=== PATIENT | female | born 1945 | race Caucasian/White ===

== ENCOUNTER 2023-08-20 15:43 | Emergency (ER) | payer OTHER, MEDICAID, SELFPAY ==
[2023-08-20 15:54] VITALS: BP 163/95
--- NOTE | 2023-08-20 17:12 | ED.MUSCINJ ---
HPI-Injury
General
Chief Complaint: Musculo-Skeletal Complaint
Source: patient
Exam Limitations: none
Time Seen by Provider: 08/20/23 17:12
Nursing documentation reviewed up to this point in time: agreed with
Travel History
Have you had any contact with someone who has COVID-19?: No
Do you have any symptoms of coronavirus? Fever > 100 degrees, chills, cough, shortness of breath, sore throat, loss of taste or smell, muscle aches, or headache?: No
History of Present Illness-Injury
Initial Injury comments:
77-year-old female with history HTN, HLD, PA, GERD presents stating she has left shoulder pain after her dog pulled her and she fell into a playground equipment and her daughters backyard. She is visiting from [place] and was planning on
driving home in 2 days. She denies hitting her head. She is anticoagulated. She denies any other injury.
Past History
Past History
ED Past Medical History: GERD, HTN, Hypercholesterolemia and Other (Polycythemia vera on hydroxyurea 500 mg daily)
ED Past Surgical History: Cardiac (Cardiac stent)
Social History
Tobacco: Non-smoker
Alcohol: None
Personal: Single
Living: alone (Visiting from [place])
Review of Systems
Review of Systems
Allergies reviewed?: Yes
All Other Systems: ROS reviewed and negative except as documented in HPI and ROS
Respiratory: Denies trouble breathing
Cardiac: Denies chest pain
ABD/GI: Denies abdominal pain or nausea
Musculoskeletal: Reports other (Pain left shoulder); Denies neck pain or back pain
Skin: Reports no symptoms
Neurological: Reports no symptoms; Denies headache
Musculoskeletal Injury Exam
Musculoskeletal Injury Exam
Left shoulder:
Pain with Movement?: Moderate
Tender to palpation?: Moderate
Soft tissue swelling?: Mild
Joint instability?: No
Malalignment/deformity?: No
Range of motion: Limited
Distal skin color and temperature: normal-warm & good color
Capillary Refill: normal
Normal distal neurovascular exam?: Yes
Phy Exam
Physical Exam
Physical Exam:
GENERAL: No acute distress. A&Ox3.
CONSTITUTIONAL: Afebrile.
EYES: PERRL, conjunctivae normal
Neck: Supple
ENMT: moist mucus membranes, Pharynx nl
RESPIRATORY: Regular respirations, nonlabored, lungs clear.
CARDIOVASCULAR: Regular rate and rhythm, no murmurs, no rubs.
GI: Soft, nontender, normal BS
MUSCULOSKELETAL: No spinal bony tenderness. Ribs nontender to compression/palpation. Rest of extremities moving well without discomfort. Moves with ease. Well perfused.
SKIN: Warm, dry, pink, small ecchymotic area left upper chest wall, minimal tenderness to palpation here.
PSYCH: Normal mood and affect. Well kept, interactive and appropriate
NEUROLOGIC: Awake, alert and oriented. No focal neurological deficits
Injury Course
Orders/Labs/Results
Orders:
Orders
08/20/23 15:57
CR Shoulder, Trauma - Left Urgent
Comment:
Reason For Exam: pain after fall
Humerus, Left 2 Views [CR Humerus - Left Min 2 Views*] Urgent
Comment:
Reason For Exam: pain after fall
08/20/23 17:36
Oxycodone/Acetaminophen [Percocet 5/325] 1 tablet PO NOW STA
08/20/23 17:37
Sling Left-Treatment ONCE
MDM/Problems Addressed
Differential Diagnosis Includes:
Soft tissue injury/fracture left shoulder
MDM/Problems Addressed:
77-year-old female with history HTN, HLD, PA, GERD presents stating she has left shoulder pain after her dog pulled her and she fell into a playground equipment and her daughters backyard. She is visiting from [place] and was planning on
driving home in 2 days. She denies hitting her head. She is anticoagulated. She denies any other injury.
X-ray left shoulder shows comminuted minimally displaced fracture of the humeral head.
Sling applied, rings removed
Refer to orthopedics for follow-up
Sent text to Dr. Prakash to get her in sooner rather than later as she will be driving alone with dog back to [place]. He states he will fit her in tomorrow.
Rx for [place] sent to her daughter's pharmacy
*Critical Care Note
Total Time (30-74mins, 75-104mins- exclusive of procedures): Not Applicable
ED Attending Note
-
Portions of this chart may have been created with voice recognition software.� Occasional wrong word or��sound alike� substitutions may have occurred due to the inherent limitations of voice recognition software.
Discharge Plan
Departure
Patient Disposition: Home (Routine Discharge)
Date of Disposition: 08/20/23
Time of Disposition: 17:46
Patient with high blood pressure during this ER visit?: Yes
Condition: Good
Discharge Problem:
Fall from slip, trip, or stumble, Fracture, humerus, head, Contusion of chest wall
Instructions: Contusion (DC), Shoulder Fracture, Using Cold for Pain, Narcotic Pain Medication
Prescriptions:
New
hydrocodone-acetaminophen 5-325 mg tablet
1 tab PO Q6H PRN (Reason: pain) Qty: 14 0RF
Referrals:
Billy Prakash MD [Active] - Next open appointment
Activity Restrictions/Additional Instructions:
As we discussed, wear the sling until further instructed by the orthopedic doctor.
Cold compress to shoulder area 20 minute off and on today and tomorrow.
Tylenol for mild to moderate pain and use the [place] (hydrocodone) as needed for worse pain.
Do not drive within 6 hours of taking the [place].
Call the orthopedic doctor's office tomorrow and make next available appointment.
Interventions
Interventions:
*Risk Screen - Suicide Last Done: 08/20/23 18:27
*General Assessment Last Done: 08/20/23 18:27
*Neglect/Abuse Screening Last Done: 08/20/23 18:27
ED- Fall Risk Assessment Last Done: 08/20/23 18:27
*ED COVID-19 Vaccine History Last Done: 08/20/23 15:54
*Nursing Disposition Last Done: 08/20/23 18:27
ED-Musculoskeletal Assessment Last Done: 08/20/23 18:27
Discharge Date and Time
Discharge Date/Time: 08/20/23 18:28
Print Language: DJIBOUTIAN
[2023-08-20 17:50] VITALS: BMI 28.2
[2023-08-20] MEDS: PERCOCET 5/325 1 TABLET PO (17:56)
== END 2023-08-20 18:28 | disposition home or self-care (01) ==
LOC: EMR 15:43
PROVIDERS: EMERGENCY PHYSICIAN Emergency Medicine
DX: S42.292A Other displaced fracture of upper end of left humerus, initial encounter for closed fracture (principal); S20.212A Contusion of left front wall of thorax, initial encounter; W18.39XA Other fall on same level, initial encounter; Y93.89 Activity, other specified; Y92.007 Garden or yard of unspecified non-institutional (private) residence as the place of occurrence of the external cause; I10 Essential (primary) hypertension; E78.00 Pure hypercholesterolemia, unspecified; K21.9 Gastro-esophageal reflux disease without esophagitis; D45 Polycythemia vera; I25.2 Old myocardial infarction; Z95.5 Presence of coronary angioplasty implant and graft; Z79.82 Long term (current) use of aspirin; Z88.1 Allergy status to other antibiotic agents; Z88.2 Allergy status to sulfonamides
CPT/HCPCS: 99283; 73030; 73060

== ENCOUNTER 2023-08-21 10:36 | Inpatient (IN) | payer OTHER, MEDICAID, SELFPAY ==
[2023-08-21] VITALS (9 sets, daily range): BP systolic 102–145; BP diastolic 54–100; PULSE 88–130; BMI 29.0; BMI 29.1
--- NOTE | 2023-08-21 07:22 | ED.GENMED ---
History of Present Illness
General
Chief Complaint: Fainting Sensation
Time Seen by Provider: 08/21/23 07:22
Travel History
Have you had any contact with someone who has COVID-19?: No
Do you have any symptoms of coronavirus? Fever > 100 degrees, chills, cough, shortness of breath, sore throat, loss of taste or smell, muscle aches, or headache?: No
History of Present Illness
History of Present Illness:
HPI: The patient was diagnosed with left shoulder fracture yesterday. Today she has been having increasing weakness to the point that she felt like she was going to pass out. She was to follow-up with Dr. Prakash by calling them today. She did not
have chest pain but did have weakness when she had her AK in 2019. Her skin piler is in [place] and she states she recently saw her and said everything 'was fine'.
EXAM:
GENERAL: Well appearing in no distress
HEENT: Moist oral mucosa
CARDIOVASCULAR: No murmurs, normal heart rate, regular rhythm, No chest wall tenderness
PULMONARY: No respiratory distress, breath sounds are clear and equal
ABDOMEN: Soft with no peritoneal signs, no tenderness
NEUROLOGIC: Excellent strength all extremities, no coordination deficits
PSYCHIATRIC: Appropriate mental status, normal insight and judgement
EXTREMITIES: Markedly decreased active range of motion of the left upper extremity proximally. There is ecchymosis noted anteriorly, there is some edema noted as well
SKIN: No rash, no lesions
TIME OF INITIAL ENCOUNTER: 7:40 AM
NUMBER AND COMPLEXITY OF PROBLEMS ADDRESSED AT THE ENCOUNTER
� Chronic conditions affecting care: CAD/AK, high blood pressure, hyperlipidemia, polycythemia vera
� Acute Exacerbation and/or Progression of Chronic Illness: This is an acute
� Differential Diagnosis includes: General debilitated state related to fracture, anemia, electrolyte abnormality, dehydration
AMOUNT AND/OR COMPLEXITY OF DATA TO BE REVIEWED AND ANALYZED
� I performed an independent evaluation of and my interpretation is:
EKG: Sinus 80, left axis deviation, nonspecific ST abnormality, no old to compare
CT:
X-rays: I reviewed the x-rays from yesterday
Laboratory Studies: CBC unremarkable, chemistries and troponin unremarkable
Other:
� Review of other/old records: I reviewed the records from yesterday, the patient has a comminuted proximal left humerus fracture
� Clinical information was obtained by an independent historian:
� Prescriptions/Medications Considered but not given:
� Further testing considered but not performed:
RISK OF COMPLICATIONS AND/OR MORBIDITY OR MORTALITY OF PATIENT MANAGEMENT
� Social determinants of health affecting care: Lives in [place], visiting daughter locally
� Discussion with other providers: I discussed case with Dr. Gann PT; I spoke to PT; Dr. Prakash later called and recommends medical admission and likely OR tomorrow. Dr. Callejas accepts at 8:45 AM.
� Escalation of care including admission/observation vs risk of discharge considered: Will have PT evaluate patient in ED. Basic labs including troponin are unremarkable. I do not feel she can be safely discharged as she has a
broken shoulder and normally uses her upper extremities to assist with getting up.
Past History
Past History
ED Past Medical History: GERD, HTN, Hypercholesterolemia and Other (Polycythemia vera on hydroxyurea 500 mg daily)
ED Past Surgical History: Cardiac (Cardiac stent)
Social History
Tobacco: Non-smoker
Alcohol: None
Personal: Single
Living: alone (Visiting from [place])
Phy Exam
Physical Exam
Physical Exam:
See HPI
Course
Orders/Labs/Results
Orders:
Orders
08/21/23 07:04
EKG [Electrocardiogram (*1)] Urgent
Reason for Study: Syncope
EKG- Treatment ONCE
08/21/23 07:18
CMP [Comprehensive Metabolic Panel] Urgent
Complete Blood Count/With Diff Urgent
Troponin I Urgent
08/21/23 07:32
0.9% Sodium Chloride 1000 ml [Nss] 1,000 ml IV BOLUS
08/21/23 08:07
PT Consult [Pt Eval And Treat] Urgent
Activity Level: Ambulate
08/21/23 08:38
CT Upper Ext W/o Iv Cont Lt Urgent
Comment:
Reason For Exam: eval prox humerus fracture per ortho
08/21/23 Lunch
Cholesterol Lowering
Fluid Restriction: 1200 mL/day (40 oz)
Cholesterol Lowering: Sodium, 2 Gram
08/21/23 10:16
Admit/Transfer Patient As Directed
Co-Sign Provider:
Level of Care: Inpatient admission
Assign to:: Telemetry
Physician / Group: Dorita ramosists
Diagnosis: L shoulder fracture, pre-syncope
Reason for Telemetry: Chest Pain syndromes
Date to Stop Telemetry: 08/23/23
Time to Stop Telemetry: 11:00
Reason for Hospitalization: L shoulder fracture, pre-syncope - syncope workup, operative management of
fracture
Expected length of stay greater than two midnights?: Yes
ELOS- Estimated Length of Stay in days: 3
I certify the patient meets the requirements for IP care: Yes
08/21/23 10:19
Code Status As Directed
Resuscitation Status: Full Code
08/21/23 10:21
Echo 2D MMode Color/Doppler Routine
Reason for Study: pre-syncope, hx of AK, pre-op risk assessment
08/21/23 11:31
Acetaminophen [Tylenol] 1,000 mg PO Q6HPRN PRN
08/23/23 11:00
DC Protocol for Telemetry ONCE
Abnormal Lab Results
08/21/23
07:18
WBC 10.9 H 10^3/uL
(4.8-10.8)
RBC 3.05 L 10^6/uL
(4.20-5.40)
Hgb 11.6 L g/dL
(12.0-16.0)
Hct 33.0 L %
(37.0-47.0)
MCV 108.2 H fL
(81.0-99.0)
MCH 38.0 H pg
(27.0-31.0)
Abs Immat Gran (auto) 0.1 H 10^3/uL
(0-0.05)
Absolute Neuts (auto) 9.1 H 10^3/uL
(1.4-6.5)
Absolute Lymphs (auto) 0.8 L 10^3/uL
(1.2-3.4)
Absolute Monos (auto) 0.8 H 10^3/uL
(0.1-0.6)
Immature Gran % 0.6 H %
(0-0.5)
Neutrophils % 83.5 H %
(42.2-75.2)
Lymphocytes % 7.7 L %
(20.5-51.1)
Sodium 131 L mmol/L
(135-145)
Creatinine 0.5 L mg/dL
(0.6-1.0)
Glucose 133 H mg/dl
(70-99)
Total Bilirubin 2.5 H mg/dl
(0.2-1.3)
08/21/23 07:18
08/21/23 07:18
Vital Signs
Initial and Last Documented VS:
Initial Vital Signs
Pulse Resp BP
83 9 117/59
08/21/23 07:03 08/21/23 07:03 08/21/23 07:03
Last Documented Vital Signs
Temp Pulse Resp BP Pulse Ox
97.8 F 80 15 113/80 98
08/21/23 07:05 08/21/23 11:30 08/21/23 11:30 08/21/23 09:13 08/21/23 07:45
*Critical Care Note
Total Time (30-74mins, 75-104mins- exclusive of procedures): Not Applicable
ED Attending Note
-
Portions of this chart may have been created with voice recognition software.� Occasional wrong word or��sound alike� substitutions may have occurred due to the inherent limitations of voice recognition software.
Discharge Plan
Departure
Patient Disposition: Admit
Date of Disposition: 08/21/23
Time of Disposition: 08:45
Presentation/result/management discussed w/ accepting MD/DO: Hospitalist
Discharge Problem:
Near syncope, Fracture of proximal humerus
Interventions
Interventions:
*Risk Screen - Suicide Last Done: 08/21/23 07:05
*General Assessment Last Done: 08/21/23 07:13
*Neglect/Abuse Screening Last Done: 08/21/23 07:05
ED- Fall Risk Assessment Last Done: 08/21/23 07:13
*ED COVID-19 Vaccine History Last Done: 08/21/23 07:05
ED- Cardiac Assessment Last Done: 08/21/23 07:13
ED- Neurological Assessment Last Done: 08/21/23 07:13
[2023-08-21 07:31] LABS: % Basophils 0.3 % (0-2); % Eosinophils 0.2 % (0-6); % Immature Granulocytes 0.6 % (0-0.5); % Lymphocytes 7.7 % (20.5-51.1); % Monocytes 7.7 % (1.7-9.3); % Neutrophils 83.5 % (42.2-75.2); Absolute Immature Granulocytes 0.1 10^3/uL (0-0.05); Absolute Lymphocytes 0.8 10^3/uL (1.2-3.4); Absolute Monocytes 0.8 10^3/uL (0.1-0.6); Absolute Neutrophils 9.1 10^3/uL (1.4-6.5); Hemoglobin 11.6 g/dL (12.0-16.0); Mean Corp Hgb Conc. 35.2 g/dL (33.0-37.0); Mean Corpuscular Volume 108.2 fL (81.0-99.0); Mean Platelet Volume 8.8 fL (7.4-10.4); Nucleated Red Blood Cells % 0 %; Platelet Count 280 10^3/uL (130-400); Red Blood Cell Count 3.05 10^6/uL (4.20-5.40); Red Cell Dist. Width 13.3 % (11.5-14.5); White Blood Cell Count 10.9 10^3/uL (4.8-10.8)
[2023-08-21] MEDS: NSS 1000 IV (07:42)
[2023-08-21 07:50] LABS: ALT (SGPT) 19 U/L (0-35); AST (SGOT) 25 U/L (14-36); Alkaline Phosphatase 53 U/L (38-126); Blood Urea Nitrogen 17 mg/dl (7-17); Calcium 8.8 mg/dl (8.4-10.2); Carbon Dioxide 25 mmol/L (22-30); Chloride 102 mmol/L (98-107); Estimated Creatinine Clearance 89 ml/min; Glucose 133 mg/dl (70-99); Potassium 3.7 mmol/L (3.5-5.1); Sodium 131 mmol/L (135-145); Total Bilirubin 2.5 mg/dl (0.2-1.3); Total Protein 6.4 g/dl (6.3-8.2); eGFR > 60.00
[2023-08-21 08:00] LABS: Troponin I < 0.012 ng/ml
--- NOTE | 2023-08-21 10:05 | HPS.HSE ---
Family Physician
-
Family Physician: * NONE
Chief Complaint
-
shoulder fracture
History of Present Illness
78 y/o F hx of Nicky Paz, hx of 2018, Essential HTN returns to ER today with weakness and pain to the point of falling out. She was diagnosed with L shoulder fracture from mechnical fall 2 days ago. She was seen in ER, placed in sling and dc with
Ortho f/u. She reports weakness, pain, and today felt close to passing out to due to pain - she became sweaty, lightheaded. No chest pain or SOB, no other complaints. She was referred for admission by orthopedics for OR intervention of fracture
tomorow.
Patient lives in [place] and visiting family locally.
Medical History
Past Medical History
Past Medical History: Reports Other (Nicky Paz, jose of 2018, Essential HTN, HLD, GERD)
Past Surgical History: Reports Cardiac
Social History
Tobacco: Non-smoker
Alcohol: None
Drug: None
Personal:
Living: Alone (in [place])
Family History
Family History: Not pertinent
Allergies / Home Medications
Allergies reflects when Allergies were last updated in [facility].
Home Medications with original date entered in [facility]
Allergy/Medication List:
Allergies
Allergy/AdvReac Type Severity Reaction Status Date / Time
erythromycin base Allergy Unknown Verified 08/21/23 07:12
Sulfa (Sulfonamide Allergy Unknown Verified 08/21/23 07:12
Antibiotics)
Home Medications
acetaminophen 500 mg tablet (Tylenol Extra Strength) 1,000 mg PO Q6HPRN PRN mild pain 08/21/23
aspirin 81 mg tablet,delayed release 81 mg PO QPM Blood Clot Prevention/Tx 08/21/23
calcium carbonate 1,000 mg PO DAILY Supplement 08/21/23
cholecalciferol (vitamin D3) 50 mcg (2,000 unit) tablet (Vitamin D3) 50 mcg PO DAILY Supplement 08/21/23
coQ10 (ubiquinol) 100 mg capsule 100 mg PO DAILY Supplement 08/21/23
dexlansoprazole 60 mg capsule,biphase delayed release (Dexilant) 30 mg PO DAILY Gastrointestinal Issue 08/21/23
hydroxyurea 500 mg capsule 500 mg PO MOWEFR@0800 rheumatoid arthritis 08/21/23
hydroxyurea 500 mg capsule 500 mg PO QPM rheumatoid arthritis 08/21/23
metoprolol tartrate 25 mg tablet 25 mg PO BID Blood Pressure 08/21/23
phytosterol 400 mg tablet 400 mg PO DAILY Supplement 08/21/23
rosuvastatin 40 mg tablet (Crestor) 40 mg PO QPM High Cholesterol 08/21/23
turmeric 400 mg capsule 400 mg PO DAILY Supplement 08/21/23
Review of Systems
-
A 12 point ROS was completed and negative except as noted: Yes
Physical Exam
Vital Signs
Vital Signs
Temp Pulse Resp BP Pulse Ox
97.8 F 83 24 112/60 98
08/21/23 07:05 08/21/23 08:45 08/21/23 08:45 08/21/23 08:00 08/21/23 07:45
Physical Exam
General: No Apparent Distress
HEENT: NormoCephalic and Anicteric
Respiratory: Clear; No Wheezes or Rales
Cardiac: S1/S2 and Regular Rhythm
GI: Soft and Non Tender
Musculoskeletal: Other (L shoulder immobilized in sling)
Neuro: AO x 3
Hematologic/Lymphatic: No Lymphadenopathy
Psych: Calm
Laboratory Results
-
08/21/23 07:18
08/21/23 07:18
Laboratory Results
Total Bilirubin 2.5 mg/dl (0.2-1.3) H 08/21/23 07:18
AST 25 U/L (14-36) 08/21/23 07:18
ALT 19 U/L (0-35) 08/21/23 07:18
Alkaline Phosphatase 53 U/L (38-126) 08/21/23 07:18
Troponin I < 0.012 ng/ml 08/21/23 07:18
Data Reviewed
-
Diagnostic Radiology: Report Reviewed by me, Discussed with Physician and Discussed with Patient
Lab Data: Labs Reviewed by me, Discussed with Physician and Discussed with Patient
Impression/Plan
-
Assessment:
L traumatic shoulder fracture
- Xray: Proximal left humerus fracture.
- CT: pending
- Ortho contacted by ER; recommended admit and OR tomorrow; NPO p MN
- pain control
- keep shoulder immobilized
- EKG: NSR with PAC, old septal infarct, VR 80
- [facility] risk: 0.8% for MACE, ND, cardiac arrest. obtain Echo for pre-syncope workup.
Pre-syncope
- likely vagal in setting of pain
- check orthostatics if able
- EKG: NSR with PAC, old septal infarct, VR 80
- monitor on tele
- Echo added
Hyponatremia, monitor for now
- likely ADH from pain
- add OFR
HX of P. [place]
- continue ASA/Hydrea
HX of CAD s/p ND 2018 with stent
HLD
Essential HTN
- she reports recent Cards visit in [place], all stable
- EKG: NSR with PAC, old septal infarct, VR 80
- trop neg
- continue ASA/Statin/BB
GERD - continue PPI
DVT ppx: SCDs
Code: Full
[2023-08-21] MEDS: TYLENOL 1000 MG PO ×2 (11:35→19:46)
--- NOTE | 2023-08-21 12:46 | CON.ORTHO ---
Consultation
-
Date/Time Consultation Requested: 08/21/2023
Date/Time Consultation Performed: 08/21/2023
Performing Provider: China Ramirez PA-C, for Dr. Prakash
Reason for Consultation: left proximal humerus fracture
Consultation - Orthopedics
History
HPI: This is a 77-year-old female who presented earlier today after sustaining a second fall following her proximal humerus fracture of her left shoulder yesterday. She reports she was walking her dog on his leash in her daughter's backyard
yesterday, when he ran after the neighbor's pulling her along with the leash. She is unsure if she reached out to catch herself or just hit her left shoulder on the playground in the backyard. She was seen at [facility] yesterday and
discharged home for outpatient follow-up. This morning, she was attempting to get herself out of the bathroom when she experienced increased pain, diaphoresis, and sustained a syncopal episode. She was able to catch herself and move along the
wall, landing on her buttock. It was determined that she would be admitted to the hospital to proceed with definitive treatment of her left proximal humerus fracture going forward.
Past medical history: Significant for polycythemia vera, GERD, hypertension, hypercholesterolemia, CAD.
Past surgical history: Cardiac stent placement.
Social history: Denies tobacco use, no alcohol use, resides in [place] alone. Currently staying with daughter.
Family history: Noncontributory.
Review of systems: All systems reviewed and negative except for those mentioned in HPI
Allergies / Home Medications
Allergy/AdvReac Type Severity Reaction Status Date / Time
erythromycin base Allergy Unknown Verified 08/21/23 07:12
Sulfa (Sulfonamide Allergy Unknown Verified 08/21/23 07:12
Antibiotics)
�Medication �Instructions �Recorded
acetaminophen 500 mg tablet 1,000 mg PO Q6HPRN PRN mild pain 08/21/23
(Tylenol Extra Strength)
aspirin 81 mg tablet,delayed 81 mg PO QPM Blood Clot 08/21/23
release Prevention/Tx
calcium carbonate 1,000 mg PO DAILY Supplement 08/21/23
cholecalciferol (vitamin D3) 50 50 mcg PO DAILY Supplement 08/21/23
mcg (2,000 unit) tablet (Vitamin
D3)
coQ10 (ubiquinol) 100 mg capsule 100 mg PO DAILY Supplement 08/21/23
dexlansoprazole 60 mg 30 mg PO DAILY Gastrointestinal 08/21/23
capsule,biphase delayed release Issue
(Dexilant)
hydroxyurea 500 mg capsule 500 mg PO MOWEFR@0800 rheumatoid 08/21/23
arthritis
hydroxyurea 500 mg capsule 500 mg PO QPM rheumatoid arthritis 08/21/23
metoprolol tartrate 25 mg tablet 25 mg PO BID Blood Pressure 08/21/23
phytosterol 400 mg tablet 400 mg PO DAILY Supplement 08/21/23
rosuvastatin 40 mg tablet (Crestor) 40 mg PO QPM High Cholesterol 08/21/23
turmeric 400 mg capsule 400 mg PO DAILY Supplement 08/21/23
Vital Signs / Lab Results
Temp Pulse Resp BP Pulse Ox
97.8 F 80 15 113/80 98
08/21/23 07:05 08/21/23 11:30 08/21/23 11:30 08/21/23 09:13 08/21/23 07:45
08/21/23 07:18
08/21/23 07:18
Physical examination:
General: Well-developed, well nourished female in mild distress at rest secondary to the left shoulder pain. AAOx4.
HEENT: Atraumatic, normocephalic, neck supple.
Lungs: Nonlabored breathing on room air, no audible wheezing.
Heart: Regular rate and rhythm.
Left shoulder: Immobilized in sling. Moderate swelling and ecchymosis extending to the left upper extremity. Neurovascularly intact distally. Range of motion of shoulder not tested due to known fracture.
Radiographic studies:
X-rays of the left shoulder from [facility] on 08/20/2023 shows evidence of a comminuted proximal left humerus fracture involving the humeral head and greater tuberosity with displaced fracture fragments. Cannot rule out intra-articular
extension. No dislocation.
CT scan of the left shoulder from 08/21/2023 shows evidence of a moderately comminuted, impacted intra-articular left proximal humerus fracture
Assessment / Plan
Assessment: Left proximal humerus fracture, displaced and intra-articular.
Plan: Unfortunately, Alyssa sustained a displaced, comminuted, intra-articular proximal humerus fracture of her left shoulder during her fall yesterday. She was unable to manage this on an outpatient basis, so at this point, our recommendation is
to proceed with surgical intervention. The plan will be a left reverse total shoulder arthroplasty under the direction of Dr. Prakash tomorrow, 08/22/2023. She will remain immobilized in the sling until that time. The surgery was discussed in detail
along with the risks, benefits, and associated recovery process. Surgical and blood transfusion consents were obtained and placed in patient's chart. Her left shoulder was marked as the correct surgical site. IV antibiotics and irrigation are
on-call to the OR. She will remain n.p.o. after midnight tonight. Will plan to proceed to the OR tomorrow pending medical stabilization. All questions were answered and patient is in agreement with treatment recommendations going forward.
[2023-08-21] MEDS: ASPIR LOW (ENTERIC COATED) 81 MG PO (17:44)
[2023-08-21] MEDS: CRESTOR 40 MG PO (17:44)
[2023-08-21] MEDS: HYDREA 500 MG PO (17:45)
[2023-08-21] MEDS: LOPRESSOR 25 MG PO (19:46)
[2023-08-21] MEDS: ROXICODONE 5 MG PO (21:11)
[2023-08-22] VITALS (14 sets, daily range): BP systolic 92–145; BP diastolic 53–89
--- NOTE | 2023-08-22 05:30 | PTCARENOTE ---
First set of CHG wipes completed without difficulty, all linens changed. Pt reports minimal pain this morning, 'soreness,' denies pain medication at this time. 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 VSS throughout shift. Call delaney within reach.
--- NOTE | 2023-08-22 07:38 | W.PN.UPDATE ---
Update Note
Progress Note Update
78F OR today for L rTSA with Dr. Prakash for a proximal humerus fracture
-NWB to LUE
-will update orders postop
-ANCEF OCTOR
-NPO
-type and screen ordered
-consent in chart.
[2023-08-22 07:58] LABS: Hematocrit 30.1 % (37.0-47.0); Hemoglobin 10.4 g/dL (12.0-16.0); Mean Corp Hgb Conc. 34.6 g/dL (33.0-37.0); Mean Corpuscular Hgb 36.7 pg (27.0-31.0); Mean Corpuscular Volume 106.4 fL (81.0-99.0); Platelet Count 219 10^3/uL (130-400); Red Blood Cell Count 2.83 10^6/uL (4.20-5.40); Red Cell Dist. Width 13.1 % (11.5-14.5); White Blood Cell Count 9.1 10^3/uL (4.8-10.8)
[2023-08-22] MEDS: LOPRESSOR 25 MG PO ×2 (08:28→19:49)
[2023-08-22] MEDS: PROTONIX 40 MG PO (08:28)
--- NOTE | 2023-08-22 08:41 | W.PN.HOSP.TC ---
Today's Communication/Plan
-
OR today
Assessment / Plan
Assessment / Plan
Assessment:
L traumatic shoulder fracture
- X-ray: Proximal left humerus fracture.
- CT: Moderately comminuted, impacted intra-articular proximal left humeral fracture
- NPO today for total shoulder arthroplasty
- pain control
- keep shoulder immobilized
- EKG: NSR with PAC, old septal infarct, VR 80
- Echo: normal LV function and normal EF
- Garcia risk: 0.8% for MACE, [place], cardiac arrest.
- can proceed to OR with lower to intermediate risk. no additional testing indicated.
Pre-syncope
- likely vagal in setting of pain
- orthostatics normal
- EKG: NSR with PAC, old septal infarct, VR 80
- Echo: normal LV function and normal EF
- monitor on tele
Hyponatremia, monitor for now
- likely ADH from pain
- add OFR
HX of P. Vera
- continue ASA/Hydrea
HX of CAD s/p [place] 2018 with stent
HLD
Essential HTN
- she reports recent Cards visit in [place], all stable
- EKG: NSR with PAC, old septal infarct, VR 80
- Echo: normal LV function and normal EF
- trop neg
- continue ASA/Statin/BB
GERD - continue PPI
DVT ppx: SCDs
Code: Full
Anticipated Discharge: > 48 hours
Subjective/Interval History
-
Date of Service: August 22, 2023
denies any new pain
for OR at 12pm
Objective Data
-
Labs:
Laboratory Results
08/22/23
07:28
WBC 9.1
Hgb 10.4 L
Hct 30.1 L
Plt Count 219 D
Sodium Pending
Potassium Pending
Chloride Pending
Carbon Dioxide Pending
BUN Pending
Creatinine Pending
Glucose Pending
Calcium Pending
Vital Signs:
Vital Signs
Temp Pulse Resp BP Pulse Ox
98.4 F 96 17 112/74 97
08/22/23 07:36 08/22/23 07:36 08/22/23 07:36 08/22/23 07:36 08/22/23 07:36
I&O
08/21/23 08/22/23 08/23/23
06:59 06:59 06:59
Intake Total 900 / 900
Balance 900 / 900
Physical Exam
-
General: No Apparent Distress
HEENT: Normocephalic and Atraumatic
Respiratory: Negative Wheezes or Rales
Cardiac: Regular Rhythm and S1/S2
GI: Soft and Nontender
Genito-urinary: No Costovertebral Tender
Musculoskeletal: Other (L shoulder in sling)
Neuro: AO x 3
Hematologic / Lymphatic: No Lymphadenopathy
Psych: Calm
Data Reviewed
-
Total Time Spent with Patient (in minutes): 41
Labs: Labs Reviewed by me
[2023-08-22 08:54] LABS: Blood Urea Nitrogen 11 mg/dl (7-17); Calcium 8.3 mg/dl (8.4-10.2); Carbon Dioxide 24 mmol/L (22-30); Chloride 105 mmol/L (98-107); Estimated Creatinine Clearance 87 ml/min; Glucose 109 mg/dl (70-99); Potassium 3.4 mmol/L (3.5-5.1); Sodium 134 mmol/L (135-145); eGFR > 60.00
[2023-08-22 10:10] LABS: Hepatitis C Antibody Negative (Negative)
[2023-08-22] MEDS: ANCEF 5 IV (17:22)
[2023-08-22] MEDS: ASPIRIN 325 MG PO (17:22)
[2023-08-22] MEDS: CRESTOR 40 MG PO (17:22)
[2023-08-22] MEDS: HYDREA 500 MG PO (19:48)
[2023-08-22] MEDS: SENOKOT 17.2 MG PO (19:49)
[2023-08-22] MEDS: COLACE 100 MG PO (19:49)
[2023-08-22] MEDS: BACTROBAN 2% OINTMENT 1 APPLIC NASAL (20:41)
[2023-08-23] VITALS (7 sets, daily range): BP systolic 102–134; BP diastolic 50–80; PULSE 91; O2SAT 98
[2023-08-23] MEDS: ANCEF 5 IV (00:57)
[2023-08-23] MEDS: FLUSH (NSS) 1 FLUSH IV (00:57)
--- NOTE | 2023-08-23 04:59 | DOWNTIME ---
There was a [employer] Downtime on 08/23/2023 from 0100 to 08/23/2023 at 0439. Downtime documentation of patient's care, including medication administrations, has been reconciled in the electronic record per guidelines. Refer to the
patient's paper chart under the miscellaneous tab to see printed paper medication records and downtime forms.
[2023-08-23 05:39] LABS: Hematocrit 27.1 % (37.0-47.0); Hemoglobin 9.5 g/dL (12.0-16.0); Mean Corp Hgb Conc. 35.1 g/dL (33.0-37.0); Mean Corpuscular Hgb 37.5 pg (27.0-31.0); Mean Corpuscular Volume 107.1 fL (81.0-99.0); Platelet Count 244 10^3/uL (130-400); Red Blood Cell Count 2.53 10^6/uL (4.20-5.40); White Blood Cell Count 11.4 10^3/uL (4.8-10.8)
[2023-08-23 06:08] LABS: Blood Urea Nitrogen 14 mg/dl (7-17); Calcium 8.5 mg/dl (8.4-10.2); Carbon Dioxide 24 mmol/L (22-30); Chloride 102 mmol/L (98-107); Estimated Creatinine Clearance 87 ml/min; Glucose 128 mg/dl (70-99); Potassium 3.6 mmol/L (3.5-5.1); Sodium 135 mmol/L (135-145); eGFR > 60.00
--- NOTE | 2023-08-23 07:42 | W.PN.ORTHO ---
Today's Communication / Plan
-
78-year-old female postop day 1 left reverse total shoulder arthroplasty for fracture under the direction of Dr. Prakash
-- Continue sling to left upper extremity for immobilization x 6 weeks. Nonweightbearing to left upper extremity.
-- PT/OT for strengthening and conditioning of bilateral lower extremities.
-- Recommend ASA 325 mg daily x 4 weeks for DVT prophylaxis.
-- Hgb 9.5 this a.m. Continue to monitor.
-- Continue pain control per primary. Ice as needed for edema control.
-- Case management consult for discharge planning.
-- Maintain Aquacel dressing until 2 weeks postop. Follow-up at 2 weeks postop for staple removal and repeat evaluation.
-- Orthopedics will continue to follow along.
Assessment
.
Distal Motor Intact: Yes
Dressing:
Clean, dry and intact.
Plan
.
Surgery / Date: Left rev TSA for fracture, [facility], 08/22/23
DVT Prophylaxis: Aspirin
Activity:
Out of bed.
PT/OT
Subjective
.
.:
Ms. Crews is postop day 1 following her left reverse total shoulder arthroplasty for proximal humerus fracture performed by Dr. Prakash. She is resting comfortably in bed this morning. She does endorse aching pain about the shoulder, but otherwise
reports she is doing well. Sling is in place. She reports sensation is returning to her hand and left upper extremity. She does endorse some mild tingling remaining about her thumb.
Vital Signs and Labs
.
Vital Signs and Labs:
Lab Results
08/23/23 05:00
08/23/23 05:00
Temp Pulse Resp BP Pulse Ox
98.8 F 80 18 108/57 96
08/23/23 03:00 08/23/23 03:00 08/23/23 03:00 08/23/23 03:00 08/23/23 03:00
Physical Exam
-
Directed exam of the left upper extremity reveals Aquacel dressing clean, dry and intact. Expected postoperative edema about the shoulder. Patient able to wiggle fingers, flex and extend wrist. Sensation intact to light touch distally. Capillary
refill less than 2 seconds.
[2023-08-23] MEDS: LOPRESSOR 25 MG PO (08:27)
[2023-08-23] MEDS: ROXICODONE 5 MG PO ×3 (08:27→17:21)
[2023-08-23] MEDS: COLACE 100 MG PO ×2 (08:27→19:27)
[2023-08-23] MEDS: ASPIRIN 325 MG PO (08:28)
[2023-08-23] MEDS: SENOKOT 17.2 MG PO ×2 (08:28→19:27)
[2023-08-23] MEDS: BACTROBAN 2% OINTMENT 1 APPLIC NASAL ×2 (08:28→19:27)
[2023-08-23] MEDS: PROTONIX 40 MG PO (08:28)
[2023-08-23] MEDS: HYDREA 500 MG PO ×2 (08:28→17:21)
--- NOTE | 2023-08-23 10:30 | W.PN.HOSP.TC ---
Today's Communication/Plan
-
continue post-op care, pain control as per Ortho
PT/OT and SNF planning
Assessment / Plan
Assessment / Plan
Assessment:
L traumatic shoulder fracture
- X-ray: Proximal left humerus fracture.
- CT: Moderately comminuted, impacted intra-articular proximal left humeral fracture
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
- Continue sling to left upper extremity for immobilization x 6 weeks. Nonweightbearing to left upper extremity.
- ASA 325mg daily x 4 weeks for DVT ppx
- pain control
Pre-syncope
- likely vagal in setting of pain
- orthostatics normal
- EKG: NSR with PAC, old septal infarct, VR 80
- Echo: normal LV function and normal EF
- monitor on tele
Hyponatremia, monitor for now
- likely ADH from pain
- complete fluid restriction
HX of P. Vera
- continue ASA/Hydrea
HX of CAD s/p [place] 2019 with stent
HLD
Essential HTN
- she reports recent Cards visit in [place], all stable
- EKG: NSR with PAC, old septal infarct, VR 80
- Echo: normal LV function and normal EF
- trop neg
- continue ASA/Statin/BB
GERD - continue PPI
hypokalemia
- replete prn
DVT ppx: SCDs+ASA
Code: Full
Dispo: SNF per PT/OT. CM aware.
Anticipated Discharge: 24 - 48 hours
Subjective/Interval History
-
Date of Service: August 23, 2023
pain controlled with meds
no new complaints
Objective Data
-
Labs:
Laboratory Results
08/23/23
05:00
WBC 11.4 H
Hgb 9.5 L
Hct 27.1 L
Plt Count 244
Sodium 135
Potassium 3.6
Chloride 102
Carbon Dioxide 24
BUN 14
Creatinine 0.5 L
Glucose 128 H
Calcium 8.5
Vital Signs:
Vital Signs
Temp Pulse Resp BP Pulse Ox
98.0 F 87 18 110/50 97
08/23/23 08:00 08/23/23 08:00 08/23/23 08:00 08/23/23 08:00 08/23/23 08:00
I&O
08/22/23 08/23/23 08/24/23
06:59 06:59 06:59
Intake Total 900 / 900 440 / 440
Output Total 250 / 250
Balance 900 / 900 190 / 190
Physical Exam
-
General: No Apparent Distress
HEENT: Normocephalic and Atraumatic
Respiratory: Clear to Auscultation; Negative Wheezes or Rales
Cardiac: Regular Rhythm and S1/S2
GI: Soft and Nontender
Genito-urinary: No Costovertebral Tender
Musculoskeletal: Other (L shoulder surgical dressing in place)
Neuro: AO x 3
Psych: Calm
Data Reviewed
-
Total Time Spent with Patient (in minutes): 41
Labs: Labs Reviewed by me
[2023-08-23] MEDS: TYLENOL 1000 MG PO ×2 (12:54→19:26)
--- NOTE | 2023-08-23 15:20 | CM ---
Patient seen bedside.
IA completed.
Patient lives alone with dog in [place].
Patient currently visiting daughter in [place], 2 story home with 2 steps to enter. Sleeps on 1st floor sofa.
Patient ambulates without assistive devices.
Patient drives, drove here from [place].
S/p fall while walking dog and left shoulder arthroplasty.
PT recommending skilled rehab.
referrals placed to [facility] and [facility].
patient will require insurance auth.
PCP: Dr Nithin Mc
Pharmacy: [facility]
Plan: Short term skilled rehab.
[2023-08-23] MEDS: CRESTOR 40 MG PO (17:20)
[2023-08-23] MEDS: LOPRESSOR PO (19:27)
[2023-08-24] VITALS (8 sets, daily range): BP systolic 105–141; BP diastolic 55–64; PULSE 86; O2SAT 99
[2023-08-24] MEDS: ROXICODONE 5 MG PO ×4 (03:09→20:27)
[2023-08-24 05:31] LABS: Hematocrit 28.3 % (37.0-47.0); Hemoglobin 9.8 g/dL (12.0-16.0); Mean Corp Hgb Conc. 34.6 g/dL (33.0-37.0); Mean Corpuscular Hgb 36.8 pg (27.0-31.0); Mean Corpuscular Volume 106.4 fL (81.0-99.0); Platelet Count 265 10^3/uL (130-400); Red Blood Cell Count 2.66 10^6/uL (4.20-5.40); Red Cell Dist. Width 13.2 % (11.5-14.5); White Blood Cell Count 8.1 10^3/uL (4.8-10.8)
[2023-08-24 05:56] LABS: Blood Urea Nitrogen 16 mg/dl (7-17); Calcium 8.1 mg/dl (8.4-10.2); Carbon Dioxide 28 mmol/L (22-30); Chloride 103 mmol/L (98-107); Estimated Creatinine Clearance 87 ml/min; Glucose 112 mg/dl (70-99); Potassium 3.2 mmol/L (3.5-5.1); Sodium 135 mmol/L (135-145); eGFR > 60.00
--- NOTE | 2023-08-24 07:54 | W.PN.HOSP.TC ---
Today's Communication/Plan
-
Physiatry consult. Replete potassium.
Assessment / Plan
Assessment / Plan
Physical exam:
General: Well Developed, Well Nourished and No Apparent Distress
HEENT: Normocephalic, Atraumatic and Moist Mucous Membranes
Respiratory: Clear to Auscultation; Negative Wheezes, Rales or Rhonchi
Cardiac: Regular Rhythm and S1/S2
GI: Soft, Nontender and Nondistended
Musculoskeletal: Postop left shoulder. Sling in her left shoulder. No Clubbing, No Cyanosis and No Edema
Neuro: Awake, Alert and Oriented, no gross neuro-deficits.
Psych: Calm
Assessment:
L traumatic shoulder fracture
- X-ray: Proximal left humerus fracture.
- CT: Moderately comminuted, impacted intra-articular proximal left humeral fracture
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
- Continue sling to left upper extremity for immobilization x 6 weeks. Nonweightbearing to left upper extremity.
- ASA 325mg daily x 4 weeks for DVT ppx
- pain control
-Appreciate Ortho consult and follow-up
-Discussed with PT and they can recommend acute rehab evaluation
-Physiatry consulted today
-Discussed with case management about discharge disposition but await for acute rehab eval.
Pre-syncope
- likely vagal in setting of pain
- orthostatics normal
- EKG: NSR with PAC, old septal infarct, VR 80
- Echo: normal LV function and normal EF
- monitor on tele
Hyponatremia, monitor for now
-Sodium normal today, 135
- likely ADH from pain
- complete fluid restriction
HX of P. Vera
-Hemoglobin 9.8, platelet count 265, WBC count 8.1 today
- continue ASA/Hydrea
HX of CAD s/p [place] 2019 with stent
HLD
Essential HTN
-Patient is chest pain-free
- she reports recent Cards visit in [place], all stable
- EKG: NSR with PAC, old septal infarct, VR 80
- Echo: normal LV function and normal EF
- trop neg
- continue ASA/Statin/BB
GERD - continue PPI
hypokalemia
- replete orally today and trend in a.m.
-Check magnesium levels in a.m.
DVT ppx: SCDs+ASA
Code: Full
Dispo: SNF per PT/OT. CM aware.
Anticipated Discharge: Within 24 hours
Subjective/Interval History
-
Date of Service: August 24, 2023
Patient pain was an issue before since she did not know that she needed to ask for. Denies chest pain or shortness of breath. She says she is moving her bowels.
Objective Data
-
Labs:
Laboratory Results
08/24/23
04:57
WBC 8.1
Hgb 9.8 L
Hct 28.3 L
Plt Count 265
Sodium 135
Potassium 3.2 L
Chloride 103
Carbon Dioxide 28
BUN 16
Creatinine 0.5 L
Glucose 112 H
Calcium 8.1 L
Vital Signs:
Vital Signs
Temp Pulse Resp BP Pulse Ox
98.2 F 91 18 141/64 100
08/24/23 03:00 08/24/23 03:00 08/24/23 03:00 08/24/23 03:00 08/24/23 03:00
I&O
08/23/23 08/24/23 08/25/23
06:59 06:59 06:59
Intake Total 440 / 440 560 / 560
Output Total 250 / 250
Balance 190 / 190 560 / 560
Review of Systems
-
All other systems: Reviewed and negative
[2023-08-24] MEDS: PROTONIX 40 MG PO (09:09)
[2023-08-24] MEDS: ASPIRIN 325 MG PO (09:09)
[2023-08-24] MEDS: KCL 40 MEQ PO ×2 (09:09→12:08)
[2023-08-24] MEDS: COLACE 100 MG PO ×2 (09:10→20:28)
[2023-08-24] MEDS: SENOKOT 17.2 MG PO ×2 (09:10→20:28)
[2023-08-24] MEDS: LOPRESSOR 25 MG PO ×2 (09:12→20:28)
[2023-08-24] MEDS: MIRALAX 17 GRAMS PO (09:20)
--- NOTE | 2023-08-24 12:10 | W.PN.ORTHO ---
Today's Communication / Plan
-
PT/OT
Aspirin for DVT prophylactics
Sling and nonweightbearing left upper extremity
Rehab/snf facility once medically stable
Orthopedics to sign off
Follow-up with Dr. Prakash 2 weeks postop
Assessment
.
Distal Motor Intact: Yes
Dressing:
Clean, dry and intact.
Plan
.
Surgery / Date: Left rev TSA for fracture, [facility], 08/22/23
DVT Prophylaxis: Aspirin
Activity:
Out of bed.
PT/OT
Discharge Plan: SNF
Subjective
.
.:
Late document entry due to difficulty signing onto Between. Patient seen August 24, 2023 at 7 AM.
Patient resting comfortably.
Vital Signs and Labs
.
Vital Signs and Labs:
Lab Results
08/24/23 04:57
08/24/23 04:57
Temp Pulse Resp BP Pulse Ox
98.4 F 86 18 115/59 99
08/24/23 11:45 08/24/23 11:45 08/24/23 11:45 08/24/23 11:45 08/24/23 11:45
Non-invasive Hgb result: 9.1
[2023-08-24] MEDS: TYLENOL 1000 MG PO (12:16)
--- NOTE | 2023-08-24 14:43 | CM ---
CM received update from PT/OT, patient appropriate for Acute Rehab, PM&R consult ordered. Patient seen bedside, agreeable to referrals to be sent to [facility] for Acute Rehab. CM will continue to follow for discharge planning needs,
referrals sent in [facility].
Plan; referrals sent to Acute Rehab, PM&R consulted.
[2023-08-24] MEDS: CRESTOR 40 MG PO (17:07)
[2023-08-24] MEDS: HYDREA 500 MG PO (17:07)
[2023-08-24] MEDS: DILAUDID 0.5 MG IV (23:10)
[2023-08-25] VITALS (9 sets, daily range): BP systolic 92–145; BP diastolic 54–86; PULSE 89; O2SAT 99
[2023-08-25 04:51] LABS: Hemoglobin 9.9 g/dL (12.0-16.0); Mean Corp Hgb Conc. 36.7 g/dL (33.0-37.0); Mean Corpuscular Hgb 37.9 pg (27.0-31.0); Mean Corpuscular Volume 103.4 fL (81.0-99.0); Mean Platelet Volume 8.4 fL (7.4-10.4); Platelet Count 261 10^3/uL (130-400); Red Blood Cell Count 2.61 10^6/uL (4.20-5.40); Red Cell Dist. Width 12.9 % (11.5-14.5); White Blood Cell Count 6.8 10^3/uL (4.8-10.8)
[2023-08-25 05:31] LABS: Blood Urea Nitrogen 13 mg/dl (7-17); Calcium 8.4 mg/dl (8.4-10.2); Carbon Dioxide 25 mmol/L (22-30); Chloride 99 mmol/L (98-107); Estimated Creatinine Clearance 87 ml/min; Glucose 110 mg/dl (70-99); Magnesium 2.1 mg/dl (1.6-2.3); Potassium 4.4 mmol/L (3.5-5.1); Sodium 132 mmol/L (135-145); eGFR > 60.00
[2023-08-25] MEDS: TYLENOL 1000 MG PO ×3 (05:46→22:00)
--- NOTE | 2023-08-25 07:10 | W.PN.HOSP.TC ---
Today's Communication/Plan
-
Continue current management. Discharge planning in progress.
Assessment / Plan
Assessment / Plan
Physical exam:
General: Well Developed, Well Nourished and No Apparent Distress
HEENT: Normocephalic, Atraumatic and Moist Mucous Membranes
Respiratory: Clear to Auscultation; Negative Wheezes, Rales or Rhonchi
Cardiac: Regular Rhythm and S1/S2
GI: Soft, Nontender and Nondistended
Musculoskeletal: Postop left shoulder. Sling in her left shoulder. No Clubbing, No Cyanosis and No Edema
Neuro: Awake, Alert and Oriented, no gross neuro-deficits.
Psych: Calm
Assessment:
L traumatic shoulder fracture
- X-ray: Proximal left humerus fracture.
- CT: Moderately comminuted, impacted intra-articular proximal left humeral fracture
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
- Continue sling to left upper extremity for immobilization x 6 weeks. Nonweightbearing to left upper extremity.
- ASA 325mg daily x 4 weeks for DVT ppx
- pain control
-Appreciate Ortho consult and follow-up
-Discussed with PT on 08/23 and they can recommended acute rehab evaluation
-Physiatry consulted yesterday on 08/23
-She is medically ready for discharge today. Discharge paperwork ready (narcotic prescription signed by me and placed in the chart). Waiting for rn field case manager to let us know about discharge disposition.
Pre-syncope
- likely vagal in setting of pain
- orthostatics normal
- EKG: NSR with PAC, old septal infarct, VR 80
- Echo: normal LV function and normal EF
- monitor on tele
Asymptomatic hypotension
-Resolved
-Tolerated her beta-sis well today.
-Patient tells me that she does run low blood pressure at times without any symptoms.
Hyponatremia, monitor for now
-Sodium mildly low, 132
- likely ADH from pain
- complete fluid restriction
HX of P. Vera
-Hemoglobin 9.9 today
- continue ASA/Hydrea
HX of CAD s/p [place] 2019 with stent
HLD
Essential HTN
-Patient is chest pain-free
- she reports recent Cards visit in [place], all stable
- EKG: NSR with PAC, old septal infarct, VR 80
- Echo: normal LV function and normal EF
- trop neg
- continue ASA/Statin/BB
GERD - continue PPI
hypokalemia
-K normal 4.4 today
-Mg normal
DVT ppx: SCDs+ASA
Code: Full
Dispo: SNF per PT/OT. CM aware.
Anticipated Discharge: Today
Subjective/Interval History
-
Date of Service: August 25, 2023
Patient blood pressure low this morning but then it improved by itself. By the time of my evaluation denies any chest pain shortness of breath headache or lightheadedness. Complains of postop pain left shoulder but much improved than yesterday.
Objective Data
-
Labs:
Laboratory Results
08/25/23
04:45
WBC 6.8
Hgb 9.9 L
Hct 27.0 L
Plt Count 261
Sodium 132 L
Potassium 4.4 D
Chloride 99
Carbon Dioxide 25
BUN 13
Creatinine 0.4 L
Glucose 110 H
Calcium 8.4
Vital Signs:
Vital Signs
Temp Pulse Resp BP Pulse Ox
97.4 F 71 18 92/60 100
08/25/23 06:58 08/25/23 06:58 08/25/23 06:58 08/25/23 06:58 08/25/23 06:58
I&O
04/18/24 04/19/24 04/20/24
06:59 06:59 06:59
Intake Total 560 / 560 1680 / 1680
Output Total 500 / 500
Balance 560 / 560 1180 / 1180
Review of Systems
-
All other systems: Reviewed and negative
[2023-08-25] MEDS: COLACE PO ×2 (08:28→19:57)
[2023-08-25] MEDS: SENOKOT PO ×2 (08:28→19:57)
[2023-08-25] MEDS: HYDREA 500 MG PO ×2 (08:32→17:14)
[2023-08-25] MEDS: LOPRESSOR 25 MG PO ×2 (08:32→19:58)
[2023-08-25] MEDS: PROTONIX 40 MG PO (08:32)
[2023-08-25] MEDS: ASPIRIN 325 MG PO (08:32)
--- NOTE | 2023-08-25 10:17 | CM ---
Reviewed the chart notes. Per Sathya, the patient does not met criteria for Acute Rehab. TT to [facility] to see if bed would be available for the patient. Precert is required from t. Awaiting response. RN updated. CM continues to be available to
patient/family and is monitoring medical plan for needs at discharge.
Plan: Discharge to SNF/rehab once bed found an precert obtained.
[2023-08-25] MEDS: TUMS 1 TABLET PO (10:36)
[2023-08-25] MEDS: ROXICODONE 2.5 MG PO (10:42)
--- NOTE | 2023-08-25 12:05 | CM ---
Addendum entered by Zohra Aranda RN 08/25/23 12:48:
Clinicals faxed to: [phone]
Ref# [id number]
Original Note:
Reviewed the chart notes and spoke with the patient at the bedside. IMM signed and placed on the chart. The patient has been accepted at [facility] for tomorrow. Patient agreeable to placement.
Osmany NPI #[id number]
Dr. Reagan Williamson NPI# [id number]
Precert started.
--- NOTE | 2023-08-25 14:47 | CON.MD ---
Documented by User: Yahaira Horne PA-C 08/25/23 16:55
Consultation - Medical
-
Referring Provider: Dorita Faria
Chief Complaint: Left shoulder fracture s/p total reverse shoulder replacement
History of Present Illness: Patient is a 78-year-old female with PMH of (polycythemia Vera, anemia, AR 2019, essential HTN) returns to ER today with weakness, pain, lightheadedness. She was diagnosed with a Left shoulder fracture two days ago from
a mechanical fall when her dog jumped on her. She was initially seen in the ER, placed in a sling and was discharged with an Ortho follow up. She was admitted by orthopedics for OR evaluation. On 08/22/2023, she underwent left reverse total shoulder
arthroplasty for left proximal humerus fracture secondary to osteoporosis with Dr. Prakash. Patient lives in [place] and was visiting family locally.
Past Medical History: polycythemia Vera, anemia, 2018, essential HTN
Procedure History: s/p left reverse total shoulder arthroplasty 08/22/23
Family History: Not pertinent
Social History:
Functional Level Premorbidly: Independent with all activities
Functional Level Currently: Ambulates 40 feet x 2, 15 feet x 2 with min assist. Transfer mod assist, sit to stand�min assist,
Tobacco: Denies
Alcohol: Denies
Drug use: Denies
Lives with: Alone
24-hour assistance available: owns RW and single point cane but does not use
Number of floors:1 story home
# steps to enter: 6
# steps to second floor: 0
Potential First floor set up:yes
Driving: yes
Occupation: retired
�
Allergies:
Allergy/AdvReac Type Severity Reaction Status Date / Time
erythromycin base Allergy Unknown Verified 08/21/23 07:12
Sulfa (Sulfonamide Allergy Unknown Verified 08/21/23 07:12
Antibiotics)
Review of Systems:
Constitutional: (x) Normal _
Eye: (x) Normal _
Ear/Nose/Throat: (x) Normal _
Respiratory: (x) Normal _
Cardiovascular: (x) h/o AR
Gastrointestinal: (x) cad
Genitourinary: (x) Normal _
Musculoskeletal: left humerus fx, s/p Total reverse shoulder arthroplaty
Integumentary: (x) Normal _
Neurologic: (x) Normal _
Psychiatric: (x) Normal _
Endocrine: (x) Normal _
Hematologic/Lymphatic: (x) Normal _
Allergic/Immunologic: (x) Normal _
Medications:
Active Current Visit Medication List
Category Date Time Status
Acetaminophen [Tylenol] Med 08/21/23 11:31 Active
1,000 mg PO Q6HPRN PRN
Aspirin Med 08/22/23 18:00 Active
325 mg PO DAILY
Bisacodyl [Dulcolax] Med 08/21/23 14:00 Active
10 mg RECTAL [id number] PRN
Calcium Carbonate Chewable [Tums] Med 08/25/23 08:58 Active
1 tablet PO Q6HPRN PRN
Docusate Sodium [Colace] Med 08/22/23 20:00 Active
100 mg PO BID
Docusate W/Senna [Senokot-S] Med 08/21/23 14:00 Active
1 tablet PO BIDPRN PRN
Flush (0.9% Sodium Chloride) [Flush (Nss)] Med 08/21/23 15:00 Active
See Dose Instructions IV PER PROTOCOL
HYDROmorphone [Dilaudid] Med 08/22/23 10:23 Active
0.5 mg IV Q3HPRN PRN
Hydroxyurea [Hydrea] Med 08/23/23 08:00 Active
500 mg PO MOWEFR@0800
Hydroxyurea [Hydrea] Med 08/21/23 18:00 Active
500 mg PO QPM
Metoprolol [Lopressor] Med 08/21/23 20:00 Active
25 mg PO BID
Ondansetron Injectable [Zofran] Med 08/21/23 14:00 Active
4 mg IV Q6HPRN PRN
Oxycodone [Roxicodone] Med 08/22/23 10:23 Active
2.5 mg PO Q4HPRN PRN
Oxycodone [Roxicodone] Med 08/21/23 14:00 Active
5 mg PO Q4HPRN PRN
Pantoprazole [Protonix] Med 08/22/23 08:00 Active
40 mg PO DAILY
Polyethylene Glycol Powder [Miralax] Med 08/21/23 14:00 Active
17 grams PO DAILYPRN PRN
Rosuvastatin Calcium [Crestor] Med 08/21/23 18:00 Active
40 mg PO QPM
Sennosides [Senokot] Med 08/22/23 20:00 Active
17.2 mg PO BID
Vitals:
Temp Pulse Resp BP Pulse Ox
97.7 F 86 18 104/61 96
08/25/23 11:00 08/25/23 11:00 08/25/23 11:00 08/25/23 11:00 08/25/23 11:00
Height 5 ft 7 in
Actual Weight 84.056 kg
Body Mass Index (BMI) 29.1
Physical Exam:
General Appearance/Observation: Well-developed, well-nourished individual in no apparent distress.
Pain/Comfort Assessment: Denies
Mood/Affect: Appropriate, pleasant
Integumentary/Operative Site: LUE in sling
�� Pressure Ulcer Evaluation: absent over heels.
��
�� Other Type of Wound: absent
��
Eyes: Conjunctiva/Lids: normal ��� Pupils: pupils equal round and reactive to light and Accommodation
Ears/Nose/Throat: oral mucosa moist,� throat clear.������������ Lips/Teeth/Gums: normal
Neck: No muscle spasm or tenderness
Cardiovascular: Heart: regular, no murmur
Pulses: dorsalis pedis 1+ bilaterally
Respiratory: Respiratory Effort/Chest Expansion: normal ������� Auscultation: Clear to auscultation bilaterally
Gastrointestinal: abdomen not tender, no distension, normal abdominal bowel sounds
Genitourinary: No Dwyer
Rectal Exam: Deferred
Extremities: Edema: left ankle Cyanosis: None Trophic changes: None
Neurology Exam:
Orientation: Alert, Oriented to self, Time, Place
Memory: Intact for immediate medical concerns
Higher cortical function
Cranial Nerves:
�� CNII: Pupillary light reflex: Intact���
�� CN III, IV, : Extraocular muscles: Intact
�� CN V: Facial Sensation at Forehead: Intact, Maxilla: Intact, Mandible: Intact
�� CN VII: Facial movement: Symmetric
�� CN VIII: Hearing: Normal
�� CN IX/X: Speech & swallow: Normal, Position of Uvula: Midline
�� CN XI: Shoulder shrug: Symmetric
�� CN XII: Tongue protrusion: Midline
Sensory:
�� Light touch: Intact in right upper and lower extremities
��
Reflexes:
�� Biceps: deferred
�� Brachioradialis: deferred
�� Triceps: deferred
�� Patellar: deferred
�� Babinski: Down going bilaterally
��
Musculoskeletal:
Motor: (Manual muscle scale 0-5)
Muscle SA EF WE EE FF FA HF KE DF EHL PF
Right� 5 5 5 5 5 5 5 5 5 5 5
Left - - - - 4 4 5 5 5
Tone: Normal in all extremities
Range of Motion: Passively within normal limits in all extremities, deferred LUE
Lab Results
Labs
WBC 6.8 10^3/uL (4.8-10.8) 08/25/23 04:45
RBC 2.61 10^6/uL (4.20-5.40) L 08/25/23 04:45
Hgb 9.9 g/dL (12.0-16.0) L 08/25/23 04:45
Hct 27.0 % (37.0-47.0) L 08/25/23 04:45
MCV 103.4 fL (81.0-99.0) H 08/25/23 04:45
MCH 37.9 pg (27.0-31.0) H 08/25/23 04:45
MCHC 36.7 g/dL (33.0-37.0) 08/25/23 04:45
RDW 12.9 % (11.5-14.5) 08/25/23 04:45
Plt Count 261 10^3/uL (130-400) 08/25/23 04:45
MPV 8.4 fL (7.4-10.4) 08/25/23 04:45
Abs Immat Gran (auto) 0.1 10^3/uL (0-0.05) H 08/21/23 07:18
Absolute Neuts (auto) 9.1 10^3/uL (1.4-6.5) H 08/21/23 07:18
Absolute Lymphs (auto) 0.8 10^3/uL (1.2-3.4) L 08/21/23 07:18
Absolute Monos (auto) 0.8 10^3/uL (0.1-0.6) H 08/21/23 07:18
Absolute Eos (auto) 0.0 10^3/uL (0-0.7) 08/21/23 07:18
Absolute Basos (auto) 0.0 10^3/uL (0-0.2) 08/21/23 07:18
Immature Gran % 0.6 % (0-0.5) H 08/21/23 07:18
Neutrophils % 83.5 % (42.2-75.2) H 08/21/23 07:18
Lymphocytes % 7.7 % (20.5-51.1) L 08/21/23 07:18
Monocytes % 7.7 % (1.7-9.3) 08/21/23 07:18
Eosinophils % 0.2 % (0-6) 08/21/23 07:18
Basophils % 0.3 % (0-2) 08/21/23 07:18
Nucleated RBC % 0 % 08/21/23 07:18
Sodium 132 mmol/L (135-145) L 08/25/23 04:45
Potassium 4.4 mmol/L (3.5-5.1) D 08/25/23 04:45
Chloride 99 mmol/L (98-107) 08/25/23 04:45
Carbon Dioxide 25 mmol/L (22-30) 08/25/23 04:45
BUN 13 mg/dl (7-17) 08/25/23 04:45
Creatinine 0.4 mg/dL (0.6-1.0) L 08/25/23 04:45
Estimated Creat Clear 87 ml/min 08/25/23 04:45
eGFR > 60.00 08/25/23 04:45
Glucose 110 mg/dl (70-99) H 08/25/23 04:45
Calcium 8.4 mg/dl (8.4-10.2) 08/25/23 04:45
Magnesium 2.1 mg/dl (1.6-2.3) 08/25/23 04:45
Total Bilirubin 2.5 mg/dl (0.2-1.3) H 08/21/23 07:18
AST 25 U/L (14-36) 08/21/23 07:18
ALT 19 U/L (0-35) 08/21/23 07:18
Alkaline Phosphatase 53 U/L (38-126) 08/21/23 07:18
Troponin I < 0.012 ng/ml 08/21/23 07:18
Total Protein 6.4 g/dl (6.3-8.2) 08/21/23 07:18
Albumin 4.0 g/dl (3.5-5.0) 08/21/23 07:18
Hepatitis C Antibody Negative (Negative) 08/22/23 07:28
Blood Type A POS 08/22/23 08:15
Blood Type Confirm A POS 08/22/23 09:12
Antibody Screen Negative (Negative) 08/22/23 08:15
�
Diagnostic Results: as per HPI
Assessment Patient is a 78-year-old female with PMH of (polycythemia Vera, anemia, AR 2019, essential HTN , s/p left total reverse shoulder arthroplasty on 08/22/2023 secondary to left humerus fracture secondary to osteoporosis.
Plan
PT/OT to increase independence with ADLs, improve balance, coordination, endurance, strength, mobility, community reintegration, decreased burden of care on others and family education.
Left traumatic shoulder fracture: s/p left reverse total shoulder arthroplasty 08/22/23. Continue sling to left upper extremity for immobilization x 6 weeks. Nonweightbearing to left upper extremity. Follow-up in [address] Prakash
- ASA 325mg daily x 4 weeks for DVT ppx
Pre-syncope:likely vagal in setting of pain. orthostatics normal.EKG: NSR with PAC, old septal infarct, VR 80
- Echo: normal LV function and normal EF
Asymptomatic hypotension: Patient claims low blood pressure at times without any symptoms.
Hyponatremia: monitor for now. Sodium mildly low, 132. likely ADH from pain
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 continue ASA/Hydrea
HX of CAD s/p AR 2018 with stent: She reports recent Cardiology visit in [place], all stable. Echo: normal LV function and normal EF. troponin negative. Continue ASA/Statin/BB
Pulmonary: Incentive spirometry
Hypokalemia: K normal 4.4 today. Mg normal
HLD: Rosuvastatin
Coronary artery disease : Aspirin, statin, beta-sis
Anemia: Likely multifactorial.� Continue to monitor.
Psych: Psychology consult.� Monitor mood, adjust medications as needed.
Skin: monitor for pressure sores/rashes/lesions.
Pain: acetaminophen or oxycodone as needed.
Bowel: Colace and Senna, PRN bisacodyl.
Bladder: Time void, PVRs, PRN straight cath.
GI Prophylaxis: Pantoprazole
DVT Prophylaxis: mechanical and ASA
Pulmonary: Incentive spirometry
Safety: Continue to reinforce assistance with all transfers.
Code Status:� Full code
Dispo (date/plan/equipment needs): Home with family care.� Social history reviewed.
Functional and Medical Goals: Modified Independent with ADL�s, ambulation, transfers
Summary of recommendations:
- Discharge Destination: Patient with history of left humerus fracture who is status post left total reverse shoulder on 08/22/2023 would benefit from SNF for PT/OT to increase independence with ADLs, improve balance, coordination, endurance,
strength, mobility, community reintegration, decreased burden of care on others and family education.
Left traumatic shoulder fracture: s/p left reverse total shoulder arthroplasty 08/22/23. Continue sling to left upper extremity for immobilization x 6 weeks. Nonweightbearing to left upper extremity. Follow-up in [address] Prakash
- ASA 325mg daily x 4 weeks for DVT ppx
DVT Prophylaxis: mechanical and ASA
Pulmonary: Incentive spirometry
Pain: acetaminophen or oxycodone as needed.
Bowel: Colace and Senna, PRN bisacodyl.
Bladder: Time void, PVRs, PRN straight cath.
Thank you for allowing me to care for your patient. Please contact me with any questions or concerns.
This note was dictated using a voice recognition system. Please excuse any typographical errors from claims adjuster crop. If you believe there are any discrepancies, please notify our office.

Documented by User: Narinder Hernandez MD 08/25/23 21:24
Consultation - Medical
-
Referring Provider: Dorita Faria
Chief Complaint: Left shoulder fracture s/p total reverse shoulder replacement
History of Present Illness: Patient is a 78-year-old female with PMH of (polycythemia Vera, anemia, AR 2018, essential HTN) returns to ER today with weakness, pain, lightheadedness. She was diagnosed with a Left shoulder fracture two days ago from
a mechanical fall when her dog jumped on her. She was initially seen in the ER, placed in a sling and was discharged with an Ortho follow up. She was admitted by orthopedics for OR evaluation. On 08/22/2023, she underwent left reverse total shoulder
arthroplasty for left proximal humerus fracture secondary to osteoporosis with Dr. Prakash. Patient lives in [place] and was visiting family locally.
Past Medical History: polycythemia Vera, anemia, 2018, essential HTN
Procedure History: s/p left reverse total shoulder arthroplasty 08/22/23
Family History: Not pertinent
Social History:
Functional Level Premorbidly: Independent with all activities
Functional Level Currently: Ambulates 40 feet x 2, 15 feet x 2 with min assist. Transfer mod assist, sit to stand�min assist,
Tobacco: Denies
Alcohol: Denies
Drug use: Denies
Lives with: Alone
24-hour assistance available: owns RW and single point cane but does not use
Number of floors:1 story home
# steps to enter: 6
# steps to second floor: 0
Potential First floor set up:yes
Driving: yes
Occupation: retired
�
Allergies:
Allergy/AdvReac Type Severity Reaction Status Date / Time
erythromycin base Allergy Unknown Verified 08/21/23 07:12
Sulfa (Sulfonamide Allergy Unknown Verified 08/21/23 07:12
Antibiotics)
Review of Systems:
Constitutional: (x) Normal _
Eye: (x) Normal _
Ear/Nose/Throat: (x) Normal _
Respiratory: (x) Normal _
Cardiovascular: (x) h/o AR
Gastrointestinal: (x) cad
Genitourinary: (x) Normal _
Musculoskeletal: left humerus fx, s/p Total reverse shoulder arthroplaty
Integumentary: (x) Normal _
Neurologic: (x) Normal _
Psychiatric: (x) Normal _
Endocrine: (x) Normal _
Hematologic/Lymphatic: (x) Normal _
Allergic/Immunologic: (x) Normal _
Medications:
Active Current Visit Medication List
Category Date Time Status
Acetaminophen [Tylenol] Med 08/21/23 11:31 Active
1,000 mg PO Q6HPRN PRN
Aspirin Med 08/22/23 18:00 Active
325 mg PO DAILY
Bisacodyl [Dulcolax] Med 08/21/23 14:00 Active
10 mg RECTAL [id number] PRN
Calcium Carbonate Chewable [Tums] Med 08/25/23 08:58 Active
1 tablet PO Q6HPRN PRN
Docusate Sodium [Colace] Med 08/22/23 20:00 Active
100 mg PO BID
Docusate W/Senna [Senokot-S] Med 08/21/23 14:00 Active
1 tablet PO BIDPRN PRN
Flush (0.9% Sodium Chloride) [Flush (Nss)] Med 08/21/23 15:00 Active
See Dose Instructions IV PER PROTOCOL
HYDROmorphone [Dilaudid] Med 08/22/23 10:23 Active
0.5 mg IV Q3HPRN PRN
Hydroxyurea [Hydrea] Med 08/23/23 08:00 Active
500 mg PO MOWEFR@0800
Hydroxyurea [Hydrea] Med 08/21/23 18:00 Active
500 mg PO QPM
Metoprolol [Lopressor] Med 08/21/23 20:00 Active
25 mg PO BID
Ondansetron Injectable [Zofran] Med 08/21/23 14:00 Active
4 mg IV Q6HPRN PRN
Oxycodone [Roxicodone] Med 08/22/23 10:23 Active
2.5 mg PO Q4HPRN PRN
Oxycodone [Roxicodone] Med 08/21/23 14:00 Active
5 mg PO Q4HPRN PRN
Pantoprazole [Protonix] Med 08/22/23 08:00 Active
40 mg PO DAILY
Polyethylene Glycol Powder [Miralax] Med 08/21/23 14:00 Active
17 grams PO DAILYPRN PRN
Rosuvastatin Calcium [Crestor] Med 08/21/23 18:00 Active
40 mg PO QPM
Sennosides [Senokot] Med 08/22/23 20:00 Active
17.2 mg PO BID
Vitals:
Temp Pulse Resp BP Pulse Ox
97.7 F 86 18 104/61 96
08/25/23 11:00 08/25/23 11:00 08/25/23 11:00 08/25/23 11:00 08/25/23 11:00
Height 5 ft 7 in
Actual Weight 84.056 kg
Body Mass Index (BMI) 29.1
Physical Exam:
General Appearance/Observation: Well-developed, well-nourished individual in no apparent distress.
Pain/Comfort Assessment: Denies
Mood/Affect: Appropriate, pleasant
Integumentary/Operative Site: LUE in sling
�� Pressure Ulcer Evaluation: absent over heels.
��
Eyes: Conjunctiva/Lids: normal ��� Pupils: pupils equal round and reactive to light and Accommodation
Ears/Nose/Throat: oral mucosa moist,� throat clear.������������ Lips/Teeth/Gums: normal
Neck: No muscle spasm or tenderness
Cardiovascular: Heart: regular, no murmur
Pulses: dorsalis pedis 1+ bilaterally
Respiratory: Respiratory Effort/Chest Expansion: normal ������� Auscultation: Clear to auscultation bilaterally
Gastrointestinal: abdomen not tender, no distension, normal abdominal bowel sounds
Genitourinary: No Dwyer
Rectal Exam: Deferred
Extremities: Edema: left ankle Cyanosis: None Trophic changes: None
Neurology Exam:
Orientation: Alert, Oriented to self, Time, Place
Memory: Intact for immediate medical concerns
Cranial Nerves:
�� CNII: Pupillary light reflex: Intact���
�� CN III, IV, : Extraocular muscles: Intact
�� CN V: Facial Sensation at Forehead: Intact, Maxilla: Intact, Mandible: Intact
�� CN VII: Facial movement: Symmetric
�� CN VIII: Hearing: Normal
�� CN IX/X: Speech & swallow: Normal, Position of Uvula: Midline
�� CN XI: Shoulder shrug: Symmetric
�� CN XII: Tongue protrusion: Midline
Sensory:
�� Light touch: Intact in right upper and lower extremities
��
Reflexes:
�� Babinski: Down going bilaterally
��
Musculoskeletal: Motor: (Manual muscle scale 0-5)
Muscle SA EF WE EE FF FA HF KE DF EHL PF
Right� 5 5 5 5 5 5 5 5 5 5 5
Left - - - - 4 4 5 5 5
Tone: Normal in all extremities
Range of Motion: Passively within normal limits in all extremities, deferred LUE
Lab Results
Labs
WBC 6.8 10^3/uL (4.8-10.8) 08/25/23 04:45
RBC 2.61 10^6/uL (4.20-5.40) L 08/25/23 04:45
Hgb 9.9 g/dL (12.0-16.0) L 08/25/23 04:45
Hct 27.0 % (37.0-47.0) L 08/25/23 04:45
MCV 103.4 fL (81.0-99.0) H 08/25/23 04:45
MCH 37.9 pg (27.0-31.0) H 08/25/23 04:45
MCHC 36.7 g/dL (33.0-37.0) 08/25/23 04:45
RDW 12.9 % (11.5-14.5) 08/25/23 04:45
Plt Count 261 10^3/uL (130-400) 08/25/23 04:45
MPV 8.4 fL (7.4-10.4) 08/25/23 04:45
Abs Immat Gran (auto) 0.1 10^3/uL (0-0.05) H 08/21/23 07:18
Absolute Neuts (auto) 9.1 10^3/uL (1.4-6.5) H 08/21/23 07:18
Absolute Lymphs (auto) 0.8 10^3/uL (1.2-3.4) L 08/21/23 07:18
Absolute Monos (auto) 0.8 10^3/uL (0.1-0.6) H 08/21/23 07:18
Absolute Eos (auto) 0.0 10^3/uL (0-0.7) 08/21/23 07:18
Absolute Basos (auto) 0.0 10^3/uL (0-0.2) 08/21/23 07:18
Immature Gran % 0.6 % (0-0.5) H 08/21/23 07:18
Neutrophils % 83.5 % (42.2-75.2) H 08/21/23 07:18
Lymphocytes % 7.7 % (20.5-51.1) L 08/21/23 07:18
Monocytes % 7.7 % (1.7-9.3) 08/21/23 07:18
Eosinophils % 0.2 % (0-6) 08/21/23 07:18
Basophils % 0.3 % (0-2) 08/21/23 07:18
Nucleated RBC % 0 % 08/21/23 07:18
Sodium 132 mmol/L (135-145) L 08/25/23 04:45
Potassium 4.4 mmol/L (3.5-5.1) D 08/25/23 04:45
Chloride 99 mmol/L (98-107) 08/25/23 04:45
Carbon Dioxide 25 mmol/L (22-30) 08/25/23 04:45
BUN 13 mg/dl (7-17) 08/25/23 04:45
Creatinine 0.4 mg/dL (0.6-1.0) L 08/25/23 04:45
Estimated Creat Clear 87 ml/min 08/25/23 04:45
eGFR > 60.00 08/25/23 04:45
Glucose 110 mg/dl (70-99) H 08/25/23 04:45
Calcium 8.4 mg/dl (8.4-10.2) 08/25/23 04:45
Magnesium 2.1 mg/dl (1.6-2.3) 08/25/23 04:45
Total Bilirubin 2.5 mg/dl (0.2-1.3) H 08/21/23 07:18
AST 25 U/L (14-36) 08/21/23 07:18
ALT 19 U/L (0-35) 08/21/23 07:18
Alkaline Phosphatase 53 U/L (38-126) 08/21/23 07:18
Troponin I < 0.012 ng/ml 08/21/23 07:18
Total Protein 6.4 g/dl (6.3-8.2) 08/21/23 07:18
Albumin 4.0 g/dl (3.5-5.0) 08/21/23 07:18
Hepatitis C Antibody Negative (Negative) 08/22/23 07:28
Blood Type A POS 08/22/23 08:15
Blood Type Confirm A POS 08/22/23 09:12
Antibody Screen Negative (Negative) 08/22/23 08:15
Diagnostic Results: as per HPI
Assessment Patient is a 78-year-old female with PMH of (polycythemia Vera, anemia, AR 2019, essential HTN , s/p left total reverse shoulder arthroplasty on 08/22/2023 secondary to left humerus fracture secondary to osteoporosis.
Plan
PT/OT to increase independence with ADLs, improve balance, coordination, endurance, strength, mobility, community reintegration, decreased burden of care on others and family education.
Left traumatic shoulder fracture: s/p left reverse total shoulder arthroplasty 08/22/23. Continue sling to left upper extremity for immobilization x 6 weeks. Nonweightbearing to left upper extremity. Follow-up in [address] Prakash
- ASA 325mg daily x 4 weeks for DVT ppx
Pre-syncope:likely vagal in setting of pain. orthostatics normal.EKG: NSR with PAC, old septal infarct, VR 80
- Echo: normal LV function and normal EF
Asymptomatic hypotension: Patient claims low blood pressure at times without any symptoms.
Hyponatremia: monitor for now. Sodium mildly low, 132. likely ADH from pain
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 continue ASA/Hydrea
HX of CAD s/p AR 2018 with stent: She reports recent Cardiology visit in [place], all stable. Echo: normal LV function and normal EF. troponin negative. Continue ASA/Statin/BB
Pulmonary: Incentive spirometry
Hypokalemia: K normal 4.4 today. Mg normal
HLD: Rosuvastatin
Coronary artery disease : Aspirin, statin, beta-sis
Anemia: Likely postoperative.� Continue to monitor.
Psych: Psychology consult.� Monitor mood, adjust medications as needed.
Skin: monitor for pressure sores/rashes/lesions.
Pain: acetaminophen or oxycodone as needed.
Bowel: Colace and Senna, PRN bisacodyl.
Bladder: Time void, PVRs, PRN straight cath.
GI Prophylaxis: Pantoprazole
DVT Prophylaxis: mechanical and ASA
Pulmonary: Incentive spirometry
Safety: Continue to reinforce assistance with all transfers.
Code Status:� Full code
Dispo (date/plan/equipment needs): Home with family care.� Social history reviewed.
Functional and Medical Goals: Modified Independent with ADL�s, ambulation, transfers
Attending Statement: I did not see the patient today.� I agree with the plan by JARVIS Horne as documented, and was available for questions.
Summary of recommendations:
- Discharge Destination: Patient with history of left humerus fracture who is status post left total reverse shoulder on 08/22/2023 would benefit from SNF for PT/OT to increase independence with ADLs, improve balance, coordination, endurance,
strength, mobility, community reintegration, decreased burden of care on others and family education.
Left traumatic shoulder fracture: s/p left reverse total shoulder arthroplasty 08/22/23. Continue sling to left upper extremity for immobilization x 6 weeks. Nonweightbearing to left upper extremity. Follow-up in [address] Prakash
- ASA 325mg daily x 4 weeks for DVT ppx
DVT Prophylaxis: mechanical and ASA
Pulmonary: Incentive spirometry
Pain: acetaminophen or oxycodone as needed.
Bowel: Colace and Senna, PRN bisacodyl.
Bladder: Time void, PVRs, PRN straight cath.
Thank you for allowing me to care for your patient. Please contact me with any questions or concerns.
[2023-08-25] MEDS: CRESTOR 40 MG PO (17:14)
[2023-08-26] VITALS (7 sets, daily range): BP systolic 102–139; BP diastolic 59–85; PULSE 91; O2SAT 99
[2023-08-26] MEDS: TYLENOL 1000 MG PO ×3 (04:04→20:34)
[2023-08-26] MEDS: COLACE PO (07:35)
[2023-08-26] MEDS: SENOKOT PO (07:35)
[2023-08-26] MEDS: PROTONIX 40 MG PO (07:36)
[2023-08-26] MEDS: LOPRESSOR 25 MG PO ×2 (07:36→19:17)
[2023-08-26] MEDS: ASPIRIN 325 MG PO (07:36)
--- NOTE | 2023-08-26 07:48 | W.PN.HOSP.TC ---
Today's Communication/Plan
-
Stable for discharge today
Assessment / Plan
Assessment / Plan
Physical exam:
General: Well Developed, Well Nourished and No Apparent Distress
HEENT: Normocephalic, Atraumatic and Moist Mucous Membranes
Respiratory: Clear to Auscultation; Negative Wheezes, Rales or Rhonchi
Cardiac: Regular Rhythm and S1/S2
GI: Soft, Nontender and Nondistended
Musculoskeletal: Postop left shoulder. Sling in her left shoulder. No Clubbing, No Cyanosis and No Edema
Neuro: Awake, Alert and Oriented, no gross neuro-deficits.
Psych: Calm
Assessment:
L traumatic shoulder fracture
- X-ray: Proximal left humerus fracture.
- CT: Moderately comminuted, impacted intra-articular proximal left humeral fracture
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
- Continue sling to left upper extremity for immobilization x 6 weeks. Nonweightbearing to left upper extremity.
- ASA 325mg daily x 4 weeks for DVT ppx
- pain control
-Appreciate Ortho consult and follow-up
-Discussed with PT on 08/23 and they can recommended acute rehab evaluation
-Physiatry consulted yesterday on 08/23
-She is medically ready for discharge today. Discharge paperwork ready (narcotic prescription signed by me and placed in the chart). Waiting for telehealth case manager to let us know about discharge disposition.
Pre-syncope
- likely vagal in setting of pain
- orthostatics normal
- EKG: NSR with PAC, old septal infarct, VR 80
- Echo: normal LV function and normal EF
- monitor on tele
Asymptomatic hypotension
-Resolved
-Tolerated her beta-sis well today.
-Patient tells me that she does run low blood pressure at times without any symptoms.
Hyponatremia, monitor for now
-Sodium mildly low, 132
- likely ADH from pain
- complete fluid restriction
HX of P. Vera
-Hemoglobin 9.9 today
- continue ASA/Hydrea
HX of CAD s/p [place] 2019 with stent
HLD
Essential HTN
-Patient is chest pain-free
- she reports recent Cards visit in [place], all stable
- EKG: NSR with PAC, old septal infarct, VR 80
- Echo: normal LV function and normal EF
- trop neg
- continue ASA/Statin/BB
GERD - continue PPI
hypokalemia
-K normal 4.4 today
-Mg normal
DVT ppx: SCDs+ASA
Code: Full
Dispo: SNF per PT/OT. CM aware.
Anticipated Discharge: Today
Subjective/Interval History
-
Date of Service: August 26, 2023
No new complaints slept well
Objective Data
-
Vital Signs:
Vital Signs
Temp Pulse Resp BP Pulse Ox
98.2 F 91 16 120/60 97
08/26/23 03:02 08/26/23 07:36 08/26/23 03:02 08/26/23 07:36 08/26/23 03:02
I&O
08/25/23 08/26/23 08/27/23
06:59 06:59 06:59
Intake Total 1680 / 1680 1020 / 1020
Output Total 500 / 500
Balance 1180 / 1180 1020 / 1020
Review of Systems
-
All other systems: Not reviewed unless documented
Physical Exam
-
General: Well Developed
HEENT: Normocephalic
Respiratory: Clear to Auscultation
Cardiac: Regular Rhythm
Musculoskeletal: Edema, Left Upper Extrem (Left shoulder sling adequate range of motion at wrist and good pulses peripherally)
Neuro: Awake, Alert and Oriented
Psych: Calm
Data Reviewed
-
Total Time Spent with Patient (in minutes): 56
--- NOTE | 2023-08-26 07:50 | W.DS.TRANS ---
DC Summary - [employer]
-
Discharge Instructions:
Discharge Diagnosis/Procedures Left proximal humerus fracture status post
reverse shoulder arthroplasty. Anemia.
Diet Low Cholesterol
Activity Other activity
Additional Activity As recommended by Ortho. Continue sling to left
upper extremity for immobilization x 6 weeks.
Nonweightbearing to left upper extremity.
Maintain Aquacel dressing until 2 weeks postop.
Follow-up at 2 weeks postop for staple removal
and repeat evaluation.
Blood Work Please PCP to order CBC, BMP within 1 week
Instructions:
Stand-Alone Forms:
Changes to Home Medications: Yes
Discharge Medications:
DC Medications w/original date entered in [employer]
acetaminophen 500 mg tablet (Tylenol Extra Strength) 1,000 mg PO Q6HPRN PRN mild pain 08/21/23
calcium carbonate 1,000 mg PO DAILY Supplement 08/21/23
cholecalciferol (vitamin D3) 50 mcg (2,000 unit) tablet (Vitamin D3) 50 mcg PO DAILY Supplement 08/21/23
coQ10 (ubiquinol) 100 mg capsule 100 mg PO DAILY Supplement 08/21/23
dexlansoprazole 60 mg capsule,biphase delayed release (Dexilant) 30 mg PO DAILY Gastrointestinal Issue 08/21/23
hydroxyurea 500 mg capsule 500 mg PO MOWEFR@0800 rheumatoid arthritis 08/21/23
hydroxyurea 500 mg capsule 500 mg PO QPM rheumatoid arthritis 08/21/23
metoprolol tartrate 25 mg tablet 25 mg PO BID Blood Pressure 08/21/23
phytosterol 400 mg tablet 400 mg PO DAILY Supplement 08/21/23
rosuvastatin 40 mg tablet (Crestor) 40 mg PO QPM High Cholesterol 08/21/23
turmeric 400 mg capsule 400 mg PO DAILY Supplement 08/21/23
aspirin 325 mg tablet 325 mg PO DAILY 28 days #28 tabs 08/24/23
docusate sodium 100 mg capsule 100 mg PO BID 14 days #28 caps 08/24/23
oxycodone 5 mg tablet 5 mg PO Q4HPRN PRN moderate pain #4 tabs 08/24/23
Home Medication Changes
aspirin 325 mg tablet 325 mg PO DAILY 28 days #28 tabs 08/24/23
docusate sodium 100 mg capsule 100 mg PO BID 14 days #28 caps 08/24/23
oxycodone 5 mg tablet 5 mg PO Q4HPRN PRN moderate pain #4 tabs 08/24/23
Pending Results: No
--- NOTE | 2023-08-26 15:36 | CM ---
Awaiting auth awaiting [employer] Ref# [id number]. Will continue to assess.
IMM done yesterday.
LM with [facility] C[facility].
[facility]
report [phone]
afx [phone]
PLAN Awaiting auth . Will need transportation ..
[2023-08-26] MEDS: HYDREA 500 MG PO (17:05)
[2023-08-26] MEDS: CRESTOR 40 MG PO (17:05)
[2023-08-26] MEDS: COLACE 100 MG PO (19:17)
[2023-08-26] MEDS: SENOKOT 17.2 MG PO (19:17)
[2023-08-27] MEDS: ROXICODONE 5 MG PO ×3 (03:36→20:36)
[2023-08-27 07:40] VITALS: BP 100/68
--- NOTE | 2023-08-27 07:54 | W.PN.HOSP.TC ---
Today's Communication/Plan
-
Still awaiting disposition to rehab
Remained stable for discharge pending disposition and authorization from case management and insurance
Assessment / Plan
Assessment / Plan
Physical exam:
General: Well Developed, Well Nourished and No Apparent Distress
HEENT: Normocephalic, Atraumatic and Moist Mucous Membranes
Respiratory: Clear to Auscultation; Negative Wheezes, Rales or Rhonchi
Cardiac: Regular Rhythm and S1/S2
GI: Soft, Nontender and Nondistended
Musculoskeletal: Postop left shoulder. Sling in her left shoulder. No Clubbing, No Cyanosis and No Edema
Neuro: Awake, Alert and Oriented, no gross neuro-deficits.
Psych: Calm
Assessment:
L traumatic shoulder fracture
- X-ray: Proximal left humerus fracture.
- CT: Moderately comminuted, impacted intra-articular proximal left humeral fracture
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
- Continue sling to left upper extremity for immobilization x 6 weeks. Nonweightbearing to left upper extremity.
- ASA 325mg daily x 4 weeks for DVT ppx
- pain control
-Appreciate Ortho consult and follow-up
-Discussed with PT on 08/23 and they can recommended acute rehab evaluation
-Physiatry consulted yesterday on 08/23
-She is medically ready for discharge today. Discharge paperwork ready (narcotic prescription signed by me and placed in the chart). Waiting for senior case manager to let us know about discharge disposition.
Pre-syncope
- likely vagal in setting of pain
- orthostatics normal
- EKG: NSR with PAC, old septal infarct, VR 80
- Echo: normal LV function and normal EF
- monitor on tele
Asymptomatic hypotension
-Resolved
-Tolerated her beta-sis well today.
-Patient tells me that she does run low blood pressure at times without any symptoms.
Hyponatremia, monitor for now
-Sodium mildly low, 132
- likely ADH from pain
- complete fluid restriction
HX of P. Vera
-Hemoglobin 9.9 today
- continue ASA/Hydrea
HX of CAD s/p [place] 2019 with stent
HLD
Essential HTN
-Patient is chest pain-free
- she reports recent Cards visit in [place], all stable
- EKG: NSR with PAC, old septal infarct, VR 80
- Echo: normal LV function and normal EF
- trop neg
- continue ASA/Statin/BB
GERD - continue PPI
hypokalemia
-K normal 4.4 today
-Mg normal
DVT ppx: SCDs+ASA
Code: Full
Dispo: SNF per PT/OT. CM aware.
Anticipated Discharge: Today
Subjective/Interval History
-
Date of Service: August 27, 2023
States her hand feels a little swollen this morning no complaints otherwise.
Objective Data
-
Vital Signs:
Vital Signs
Temp Pulse Resp BP Pulse Ox
98.6 F 88 16 121/59 99
08/26/23 23:15 08/26/23 23:15 08/26/23 23:15 08/26/23 23:15 08/26/23 23:15
I&O
08/26/23 08/27/23 08/28/23
06:59 06:59 06:59
Intake Total 1020 / 1020 1080 / 1080
Balance 1020 / 1020 1080 / 1080
Review of Systems
-
All other systems: Not reviewed unless documented
Physical Exam
-
General: Well Developed
HEENT: Normocephalic
Respiratory: Clear to Auscultation
Cardiac: Regular Rhythm
GI: Soft
Musculoskeletal: Other (Left shoulder sling)
Data Reviewed
-
Total Time Spent with Patient (in minutes): 56
Labs: Labs Reviewed by me (Hemoglobin 9.9)
[2023-08-27] MEDS: LOPRESSOR 25 MG PO ×2 (08:58→20:30)
[2023-08-27] MEDS: ASPIRIN 325 MG PO (08:58)
[2023-08-27] MEDS: PROTONIX 40 MG PO (08:59)
[2023-08-27] MEDS: SENOKOT 17.2 MG PO ×2 (08:59→20:30)
[2023-08-27] MEDS: COLACE 100 MG PO ×2 (08:59→20:30)
[2023-08-27 10:30] VITALS: BP 125/70; BP 91/57; PULSE 105; PULSE 72; O2SAT 100
[2023-08-27 15:24] VITALS: BP 125/69; PULSE 99; O2SAT 100
[2023-08-27 15:43] VITALS: BP 125/69
[2023-08-27] MEDS: HYDREA 500 MG PO (17:16)
[2023-08-27] MEDS: CRESTOR 40 MG PO (17:16)
[2023-08-27] MEDS: TUMS 1 TABLET PO (20:29)
[2023-08-27] MEDS: TYLENOL 1000 MG PO (20:35)
[2023-08-27 23:10] VITALS: BP 126/63
[2023-08-28] MEDS: TYLENOL 1000 MG PO (05:23)
[2023-08-28] MEDS: ROXICODONE 5 MG PO (05:23)
[2023-08-28 07:09] VITALS: BP 120/52
[2023-08-28 08:40] VITALS: BP 121/67; PULSE 83; O2SAT 97
[2023-08-28] MEDS: ASPIRIN 325 MG PO (08:47)
[2023-08-28] MEDS: COLACE 100 MG PO (08:48)
[2023-08-28] MEDS: PROTONIX 40 MG PO (08:48)
[2023-08-28] MEDS: SENOKOT 17.2 MG PO (08:48)
[2023-08-28] MEDS: LOPRESSOR 25 MG PO (08:48)
[2023-08-28] MEDS: HYDREA 500 MG PO (08:48)
--- NOTE | 2023-08-28 11:35 | W.PN.HOSP.TC ---
Today's Communication/Plan
-
medically stable for DC pending bed/auth
Assessment / Plan
Assessment / Plan
Assessment:
L traumatic shoulder fracture
- X-ray: Proximal left humerus fracture.
- CT: Moderately comminuted, impacted intra-articular proximal left humeral fracture
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
- Continue sling to left upper extremity for immobilization x 6 weeks. Nonweightbearing to left upper extremity.
- ASA 325mg daily x 4 weeks for DVT ppx
- pain control
- medically stable for SNF pending bed/auth
Pre-syncope
- likely vagal in setting of pain
- orthostatics normal
- EKG: NSR with PAC, old septal infarct, VR 80
- Echo: normal LV function and normal EF
- monitor on tele
Asymptomatic hypotension
- Resolved
- Tolerated her beta-sis well today.
- Patient tells me that she does run low blood pressure at times without any symptoms.
Hyponatremia, monitor for now
- Sodium mildly low, 132
- likely ADH from pain
- complete fluid restriction
HX of P. Vera
- Hemoglobin 9.9 most recently
- continue ASA/Hydrea
HX of CAD s/p [place] 2019 with stent
HLD
Essential HTN
-Patient is chest pain-free
- she reports recent Cards visit in [place], all stable
- EKG: NSR with PAC, old septal infarct, VR 80
- Echo: normal LV function and normal EF
- trop neg
- continue ASA/Statin/BB
GERD - continue PPI
hypokalemia
- K normal 4.4 today
- Mg normal
DVT ppx: SCDs+ASA
Code: Full
Dispo: SNF per PT/OT. CM aware.
Anticipated Discharge: Within 24 hours
Subjective/Interval History
-
Date of Service: August 28, 2023
no new complaints at present
Objective Data
-
Vital Signs:
Vital Signs
Temp Pulse Resp BP Pulse Ox
98.5 F 81 14 121/67 100
08/28/23 07:09 08/28/23 08:48 08/28/23 07:09 08/28/23 08:48 08/28/23 07:09
I&O
08/27/23 08/28/23 08/29/23
06:59 06:59 06:59
Intake Total 1080 / 1080 720 / 720
Balance 1080 / 1080 720 / 720
Physical Exam
-
General: No Apparent Distress
HEENT: Normocephalic and Atraumatic
Respiratory: Negative Wheezes or Rales
Cardiac: Regular Rhythm and S1/S2
GI: Soft
Genito-urinary: No Costovertebral Tender
Neuro: AO x 3
Psych: Calm
Data Reviewed
-
Total Time Spent with Patient (in minutes): 41
Labs: Labs Reviewed by me
[2023-08-28] MEDS: TUMS 1 TABLET PO (12:07)
--- NOTE | 2023-08-28 12:30 | CM ---
CM reviewed pt with Dr Faria- remains ready for dc
Auth obtained by [place] for SNF
update to admissions/[facility]
Bedside update to pt- requesting transport
No medial necessity for BLS- in agreement with van fees
Van scheduled with [place]/transport
Transport form on chart
IMM verbally reviewed with pt- copy provided
[employer] auth SNF [facility] #[id number] 2019
13 days 08/25-09/06 (NRD) level I

Discharge Disposition- [facility] SN[facility] via van 1500 pickup
Phone- [phone] Fax- [phone]
[2023-08-28 14:21] VITALS: BP 125/67
== END 2023-08-28 15:26 | DRG 483 ==
LOC: 2 SOUTH 10:36
PROVIDERS: Hospitalist; ADMITTING PHYSICIAN Internal Medicine; CONSULT PHYSICIAN Physical Medicine & Rehabilitation; CONSULT PHYSICIAN Specialist; EMERGENCY PHYSICIAN Emergency Medicine
PROC: 0RRK00Z Replacement of Left Shoulder Joint with Reverse Ball and Socket Synthetic Substitute, Open Approach (ICD-10-PCS; 2023-08-22)
DX: M80.022A Age-related osteoporosis with current pathological fracture, left humerus, initial encounter for fracture (principal); S42.352A Displaced comminuted fracture of shaft of humerus, left arm, initial encounter for closed fracture; E87.1 Hypo-osmolality and hyponatremia; E78.00 Pure hypercholesterolemia, unspecified; I10 Essential (primary) hypertension; K21.9 Gastro-esophageal reflux disease without esophagitis; E87.6 Hypokalemia; I95.9 Hypotension, unspecified; D64.9 Anemia, unspecified; D45 Polycythemia vera; W18.30XA Fall on same level, unspecified, initial encounter
CPT/HCPCS: 73020; 73200; 80048; 80053; 83735; 84484; 85025; 85027; 86803; 86850; 86900; 86901; 93005; 93306; 96360; 97110; 97116; 97164; 97166; 97530; 97535; 99285; C1713; C1776

== ENCOUNTER → 2023-09-01 10:53 | Outpatient (REF) | payer OTHER, MEDICAID, SELFPAY ==
[2023-09-01 11:26] LABS: Hematocrit 25.9 % (37.0-47.0); Hemoglobin 8.6 g/dL (12.0-16.0); Mean Corp Hgb Conc. 33.2 g/dL (33.0-37.0); Mean Corpuscular Hgb 37.2 pg (27.0-31.0); Mean Corpuscular Volume 112.1 fL (81.0-99.0); Mean Platelet Volume 8.6 fL (7.4-10.4); Platelet Count 318 10^3/uL (130-400); Red Blood Cell Count 2.31 10^6/uL (4.20-5.40); Red Cell Dist. Width 13.5 % (11.5-14.5); White Blood Cell Count 4.8 10^3/uL (4.8-10.8)
[2023-09-01 11:45] LABS: Blood Urea Nitrogen 12 mg/dl (7-17); Calcium 8.8 mg/dl (8.4-10.2); Carbon Dioxide 29 mmol/L (22-30); Chloride 102 mmol/L (98-107); Glucose 92 mg/dl (70-99); Magnesium 2.1 mg/dl (1.6-2.3); Potassium 3.9 mmol/L (3.5-5.1); Sodium 134 mmol/L (135-145); eGFR > 60.00
== END ==
LOC: OLABWHC 10:53
PROVIDERS: ATTENDING PHYSICIAN Internal Medicine
DX: E78.5 Hyperlipidemia, unspecified (principal); I25.10 Atherosclerotic heart disease of native coronary artery without angina pectoris; Z96.641 Presence of right artificial hip joint; I25.2 Old myocardial infarction; Z95.5 Presence of coronary angioplasty implant and graft; S42.292D Other displaced fracture of upper end of left humerus, subsequent encounter for fracture with routine healing; M62.81 Muscle weakness (generalized)
CPT/HCPCS: 36415; 80048; 83735; 85027

== ENCOUNTER → 2023-09-04 13:24 | Outpatient (REF) | payer OTHER, MEDICAID, SELFPAY ==
[2023-09-04 13:58] LABS: % Basophils 0.8 % (0-2); % Immature Granulocytes 0.6 % (0-0.5); % Lymphocytes 15.1 % (20.5-51.1); % Monocytes 9.7 % (1.7-9.3); % Neutrophils 71.8 % (42.2-75.2); Absolute Eosinophils 0.1 10^3/uL (0-0.7); Absolute Lymphocytes 0.8 10^3/uL (1.2-3.4); Absolute Monocytes 0.5 10^3/uL (0.1-0.6); Absolute Neutrophils 3.6 10^3/uL (1.4-6.5); Hematocrit 29.1 % (37.0-47.0); Hemoglobin 9.5 g/dL (12.0-16.0); Mean Corp Hgb Conc. 32.6 g/dL (33.0-37.0); Mean Corpuscular Volume 113.2 fL (81.0-99.0); Mean Platelet Volume 8.7 fL (7.4-10.4); Nucleated Red Blood Cells % 0 %; Platelet Count 340 10^3/uL (130-400); Red Blood Cell Count 2.57 10^6/uL (4.20-5.40); Red Cell Dist. Width 13.8 % (11.5-14.5)
[2023-09-04 14:41] LABS: Blood Urea Nitrogen 10 mg/dl (7-17); Calcium 8.7 mg/dl (8.4-10.2); Carbon Dioxide 25 mmol/L (22-30); Chloride 102 mmol/L (98-107); Glucose 91 mg/dl (70-99); Magnesium 2.2 mg/dl (1.6-2.3); Potassium 3.7 mmol/L (3.5-5.1); Sodium 134 mmol/L (135-145); eGFR > 60.00
== END ==
LOC: OLABWHC 13:24
PROVIDERS: ATTENDING PHYSICIAN Internal Medicine; FAMILY PHYSICIAN Internal Medicine
DX: D45 Polycythemia vera (principal); Z95.5 Presence of coronary angioplasty implant and graft; I10 Essential (primary) hypertension; I25.2 Old myocardial infarction
CPT/HCPCS: 36415; 80048; 83735; 85025

== ENCOUNTER → 2023-09-09 11:41 | Outpatient (REF) | payer OTHER, MEDICAID, SELFPAY ==
[2023-09-09 12:30] LABS: Urine Albumin Trace (Neg - Trace); Urine Bilirubin Negative (Negative); Urine Character Slightly Cloudy (Clear); Urine Color Yellow; Urine Glucose Negative (Negative); Urine Ketone Negative (Negative); Urine Leukocyte 2+ (Negative); Urine Nitrite Positive (Negative); Urine Occult Blood 3+ (Negative); Urine Urobilinogen Negative (Neg - 1+)
[2023-09-09 12:43] LABS: Urine Bacteria Many (Negative); Urine Red Blood Cell 0-2 /HPF (0-2); Urine White Cell 40-50 /HPF (0-5)
== END ==
LOC: OLABWHC 11:41
PROVIDERS: ATTENDING PHYSICIAN Internal Medicine
DX: N39.0 Urinary tract infection, site not specified (principal)
CPT/HCPCS: 81003; 81015; 87071; 87086; 87186